=== PATIENT | female | born 1995 | race Caucasian/White ===

== ENCOUNTER 2018-07-23 17:19 | Emergency (ER) | payer BC ==
--- NOTE | 2018-07-23 19:16 | EDM.PDOC ---
ED HPI GENERAL MEDICAL PROBLEM - General Chief Complaint: Gastrointestinal Problem Stated Complaint: BLOODY BOWELS Time Seen by Provider: 07/23/18 18:42 Source of Information: Reports: Patient History Limitations: Reports: No Limitations - History of Present Illness INITIAL COMMENTS - FREE TEXT/NARRATIVE: This lady is her complaining of rectal bleeding since last pm. Bright red blood when she wipes. Some abd cramping this am when walking but now ok. Denies constipation. - Related Data Allergies Allergy/AdvReac Type Severity Reaction Status Date / Time No Known Allergies Allergy Verified 07/23/18 18:33 Home Meds: Home Meds NK [No Known Home Meds] 07/23/18 [History] Past Medical History - Past Surgical History GI Surgical History: Reports: Cholecystectomy Social & Family History - Tobacco Use Smoking Status *Q: Never Smoker - Caffeine Use Caffeine Use: Reports: Coffee, Soda - Recreational Drug Use Recreational Drug Use: No ED ROS GENERAL - Review of Systems Review Of Systems: ROS reveals no pertinent complaints other than HPI. ED EXAM, GI/ABD - Physical Exam Exam: See Below Exam Limited By: No Limitations General Appearance: Alert, Obese Rectal (Female) Exam: Rectal Fissure (Looks like a small hemorrhoid has split open. No more bleeding. Digital rectal neg except for rock hard smal pieces stool) Course - Vital Signs Last Recorded V/S: Last Vital Signs Temp 36.2 C 07/23/18 18:36 Pulse 79 07/23/18 18:36 Resp 16 07/23/18 18:36 BP 127/77 07/23/18 18:36 Pulse Ox 99 07/23/18 18:36 Departure - Departure Time of Disposition: 19:14 Disposition: Home, Self-Care 01 Condition: Fair Clinical Impression: External bleeding hemorrhoids - Discharge Information Referrals: Isabel Guerrero CNM [Primary Care Provider] - Additional Instructions: Try increasing your fiber intake. The easiest way is to add bran cereal to your diet. You could also use a fiber laxative. Avoiding hard stool helps to prevent straining at stool that can lead to bleeding.
== END 2018-07-23 19:32 | disposition home or self-care (01) ==
LOC: JP.ED 17:19
DX: K64.4 Residual hemorrhoidal skin tags (principal)
CPT/HCPCS: 99283

== ENCOUNTER 2019-05-21 21:34 | Emergency (ER) | payer BC ==
--- NOTE | 2019-05-21 22:21 | EDM.PDOC ---
<Coleen Chavez - Last Filed: 05/21/19 23:01> ED HPI GENERAL MEDICAL PROBLEM - General Chief Complaint: Abdominal Pain Stated Complaint: ABD PAIN ON BOTH SIDES Time Seen by Provider: 05/21/19 22:05 Source of Information: Reports: Patient History Limitations: Reports: No Limitations - History of Present Illness INITIAL COMMENTS - FREE TEXT/NARRATIVE: 23 yo female presents to ER with RLQ ABD pain. Pain has been present for 12 hours. she was able to work today. She has been mildly nauseated without emesis. LMP was 05/03/2019 she has a 29 day cycle. Last BM was prior to arrival and was normal. She did take Ibuprofen today at noon with little relief. denies dysuria. she is rating her pain 8/10 but laugh and talking with friend in room able to sit up in bed without difficulty she is also able to lay supine without indications of pain Bilateral Lower Abdomen Pain Score (Numeric/FACES): 9 - Related Data Allergies Allergy/AdvReac Type Severity Reaction Status Date / Time No Known Allergies Allergy Verified 05/21/19 21:53 Home Meds: Home Meds NK [No Known Home Meds] 07/23/18 [History] Past Medical History Psychiatric History: Reports: Depression - Infectious Disease History Infectious Disease History: Reports: Chicken Pox - Past Surgical History GI Surgical History: Reports: Cholecystectomy Social & Family History - Tobacco Use Smoking Status *Q: Current Every Day Smoker Years of Tobacco use: 2 Packs/Tins Daily: 0.5 Used Tobacco, but Quit: No Second Hand Smoke Exposure: Yes - Caffeine Use Caffeine Use: Reports: Energy Drinks, Soda - Alcohol Use Days Per Week of Alcohol Use: 0 - Recreational Drug Use Recreational Drug Use: No ED ROS GENERAL - Review of Systems Review Of Systems: See Below Constitutional: Denies: Fever, Chills Respiratory: Denies: Shortness of Breath Cardiovascular: Denies: Chest Pain GI/Abdominal: Reports: Abdominal Pain, Nausea. Denies: Constipation, Diarrhea, Decreased Appetite ED EXAM, GI/ABD - Physical Exam Exam: See Below Exam Limited By: No Limitations General Appearance: Alert, WD/WN, No Apparent Distress Respiratory/Chest: No Respiratory Distress, Lungs Clear, Normal Breath Sounds. No: Crackles, Rhonchi, Wheezing Cardiovascular: Regular Rate, Rhythm, No Murmur GI/Abdominal Exam: Normal Bowel Sounds, Soft, No Organomegaly, Tender (RLQ). No : Distended, Guarding, Rigid Neurological: Alert, Oriented Psychiatric: Normal Affect, Normal Mood Skin Exam: Warm, Dry, Intact Course - Vital Signs Last Recorded V/S: Last Vital Signs Temp 36.5 C 05/21/19 21:59 Pulse 73 05/21/19 21:59 Resp 16 05/21/19 21:59 BP 110/70 05/21/19 21:59 Pulse Ox 96 05/21/19 21:59 - Orders/Labs/Meds Orders: Active Orders 24 hr Category Date Time Status Ketorolac [Toradol] Med 05/21/19 23:22 Once 60 mg IM ONETIME ONE Labs: Laboratory Tests 05/21/19 05/21/19 05/21/19 Range/Units 22:28 22:45 22:45 WBC 7.9 (4.5-11.0) K/uL RBC 4.12 (3.30-5.50) M/uL Hgb 11.5 L (12.0-15.0) g/dL Hct 35.8 L (36.0-48.0) % MCV 87 (80-98) fL MCH 28 (27-31) pg MCHC 32 (32-36) % Plt Count 227 (150-400) K/uL Neut % (Auto) 62 (36-66) % Lymph % (Auto) 32 (24-44) % Ralls % (Auto) 5 (2-6) % Eos % (Auto) 0 L (2-4) % Baso % (Auto) 1 (0-1) % Urine Color Yellow Urine Appearance Slightly cloudy Urine pH 6.0 (4.5-8.0) Ur Specific [place] 1.020 (1.008-1.030) Urine Protein Negative (NEGATIVE) mg/dL Urine Glucose (UA) Normal (NEGATIVE) mg/dL Urine Ketones Negative (NEGATIVE) mg/dL Urine Occult Blood Negative (NEGATIVE) Urine Nitrite Positive H (NEGATIVE) Urine Bilirubin Negative (NEGATIVE) Urine Urobilinogen Normal (NORMAL) mg/dL Ur Leukocyte Esterase Negative (NEGATIVE) Urine RBC 0-5 (0-5) Urine WBC 0-5 (0-5) Ur Epithelial Cells Moderate Amorphous Sediment Not seen Urine Bacteria Moderate Urine Mucus Not seen Urine HCG, Qual Negative Departure - Departure Disposition: Home, Self-Care 01 Clinical Impression: RLQ abdominal pain - Discharge Information Referrals: Isabel Guerrero CNM [Primary Care Provider] - Forms: ED Department Discharge Additional Instructions: Take acetaminophen up to 1000 mg every 6 hrs as needed for pain relief. Add Aleve 2 every 8 hrs for added relief as needed. Recheck with your provider on Friday for recheck if your pain persists as you may benefit from a pelvic ultrasound to see if you have an ovarian cyst. - My Orders Last 24 Hours: My Active Orders 05/21/19 23:22 Ketorolac [Toradol] 60 mg IM ONETIME ONE - Assessment/Plan Last 24 Hours: My Active Orders 05/21/19 23:22 Ketorolac [Toradol] 60 mg IM ONETIME ONE <Olivier Wallace G - Last Filed: 05/21/19 23:25> Course - Vital Signs Text/Narrative:: Labs all normal, suspect ovarian cyst. Departure - Departure Time of Disposition: 23:35 Condition: Good - Discharge Information *PRESCRIPTION DRUG MONITORING PROGRAM REVIEWED*: No *COPY OF PRESCRIPTION DRUG MONITORING REPORT IN PATIENT IDALMIS: No
[2019-05-21] MEDS ORDERED: Ketorolac 60 MG/2 ML SDV IM ONE (23:22)
== END 2019-05-21 23:35 | disposition home or self-care (01) ==
LOC: JP.ED 21:34
DX: R10.31 Right lower quadrant pain (principal); F17.210 Nicotine dependence, cigarettes, uncomplicated
CPT/HCPCS: 36415; 81001; 81025; 85025; 96372; 99284; J1885

== ENCOUNTER 2019-07-04 02:33 | Emergency (ER) | payer BC ==
--- NOTE | 2019-07-04 03:07 | EDM.PDOC ---
ED HPI GENERAL MEDICAL PROBLEM - General Chief Complaint: Lower Extremity Injury/Pain Stated Complaint: PAIN IN RIGHT KNEE Time Seen by Provider: 07/04/19 02:57 Source of Information: Reports: Patient History Limitations: Reports: No Limitations - History of Present Illness INITIAL COMMENTS - FREE TEXT/NARRATIVE: 24-year-old female who was had persistent intense pain in her right knee with weightbearing over the past several weeks. 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 It's only painful when she bears weight. She was supposed to go to work at 5:00 this morning but does not think she can tolerate a shift of work because of the discomfort. She has tried ibuprofen without any relief. She sees physical therapy on 12 July and supposedly needs to have physical therapy for 6 weeks prior to surgical intervention. She has no pain when lying down. No swelling or redness. No specific trauma. Onset: Gradual Duration: Week(s): (2-3 weeks) Location: Reports: Lower Extremity, Right Associated Symptoms: Reports: No Other Symptoms Right Knee Pain Score (Numeric/FACES): 6 - Related Data Allergies Allergy/AdvReac Type Severity Reaction Status Date / Time No Known Allergies Allergy Verified 07/04/19 02:42 Home Meds: Home Meds NK [No Known Home Meds] 07/23/18 [History] Past Medical History HEENT History: Reports: Impaired Vision Neurological History: Reports: Migraines Psychiatric History: Reports: Depression, Panic Attack, Suicidal Ideation - Infectious Disease History Infectious Disease History: Reports: Chicken Pox - Past Surgical History GI Surgical History: Reports: Cholecystectomy Social & Family History - Tobacco Use Smoking Status *Q: Current Every Day Smoker Years of Tobacco use: 8 Packs/Tins Daily: 0.5 - Caffeine Use Caffeine Use: Reports: Soda - Recreational Drug Use Recreational Drug Use: No Review of Systems - Review of Systems Review Of Systems: See Below Constitutional: Denies: Fever Respiratory: Denies: Shortness of Breath Cardiovascular: Denies: Chest Pain GI/Abdominal: Denies: Abdominal Pain Neurological: Denies: Paresthesia Psychiatric: Reports: Depression ED EXAM, GENERAL - Physical Exam Exam: See Below Exam Limited By: No Limitations General Appearance: Alert, No Apparent Distress Respiratory/Chest: No Respiratory Distress Extremities: Other (Knees were examined and are symmetrical, no effusions. She has a small amount of discomfort with valgus stress to the right knee.Pain on varus stress or movement of the patella. 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 She'll be given 10 doses of ketorolac to take every 6 hours, offered crutches but she didn't think she could use them. I would like her to call orthopedics this week and see if she can't convince them to try an injection of steroid to speed up her recovery. Departure - Departure Time of Disposition: 03:23 Disposition: Home, Self-Care 01 Condition: Good Clinical Impression: Knee pain, right Qualifiers: Chronicity: acute Qualified Code(s): M25.561 - Pain in right knee - Discharge Information Instructions: Knee Pain, Adult Referrals: Isabel Guerrero CNM [Primary Care Provider] - Forms: ED Department Discharge Care Plan Goals: Take 1 pill of ketorolac every 6 hours until gone. Call orthopedics on Friday to see if you can't get a recheck next week, consider seeing Dr. Alejandro Chahal at the hospital if [facility] orthopedics is insistent on 6 weeks of physical therapy.
== END 2019-07-04 03:23 | disposition home or self-care (01) ==
LOC: JP.ED 02:33
DX: M25.561 Pain in right knee (principal); F17.210 Nicotine dependence, cigarettes, uncomplicated
CPT/HCPCS: 99283

== ENCOUNTER 2019-10-23 00:08 | Emergency (ER) | payer BC, OTHER ==
[2019-10-23] MEDS ORDERED: Ketorolac 60 MG/2 ML SDV IM ONE (00:54)
[2019-10-23] MEDS ORDERED: Cyclobenzaprine 10 MG Tab PO ONE (00:54)
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
== END 2019-10-23 01:41 | disposition home or self-care (01) ==
LOC: JP.ED 00:08
DX: G44.319 Acute post-traumatic headache, not intractable (principal); J44.9 Chronic obstructive pulmonary disease, unspecified; E66.9 Obesity, unspecified; Z68.41 Body mass index [BMI] 40.0-44.9, adult
CPT/HCPCS: 96372; 99283; A9270; J1885

== ENCOUNTER 2019-10-26 12:16 | Emergency (ER) | payer MEDICAID ==
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
== END 2019-10-26 13:27 | disposition home or self-care (01) ==
LOC: JP.ED 12:16
DX: R07.89 Other chest pain (principal); R07.81 Pleurodynia; J44.9 Chronic obstructive pulmonary disease, unspecified; E66.9 Obesity, unspecified; Z68.41 Body mass index [BMI] 40.0-44.9, adult; Z87.891 Personal history of nicotine dependence; Z79.51 Long term (current) use of inhaled steroids
CPT/HCPCS: 99282; 99284

== ENCOUNTER 2019-12-03 10:48 | Emergency (ER) | payer SELFPAY ==
--- NOTE | 2019-12-03 11:16 | EDM.PDOCBH ---
ED HPI GENERAL MEDICAL PROBLEM - General Chief Complaint: Behavioral/Psych Stated Complaint: SUICIDAL IDEATION Time Seen by Provider: 12/03/19 11:00 Source of Information: Reports: Patient, Old Records, RN History Limitations: Reports: No Limitations - History of Present Illness INITIAL COMMENTS - FREE TEXT/NARRATIVE: 24 yo female presents in referral from [facility] for depression with suicidal ideation. She says she tried to take "all her pills" last night but her friend took them away from her. She has been depressed for several weeks, states that she told her primary and was told she should go for help the next time it happens. Denies any recent illnesses. Onset: Gradual Duration: Week(s):, Getting Worse Location: Reports: Generalized Quality: Reports: Other (no pain) Severity: Moderate Improves with: Reports: None Worsens with: Reports: Other (time) Context: Reports: Other (See HPI) Associated Symptoms: Reports: No Other Symptoms Treatments POLITICAL SCIENTIST: Reports: Other (see below) (none) - Related Data Allergies Allergy/AdvReac Type Severity Reaction Status Date / Time No Known Allergies Allergy Verified 12/03/19 11:19 Home Meds: Home Meds Albuterol Sulfate [Albuterol Sulfate Hfa] 1 - 2 puff IN ASDIRECTED PRN 10/26/19 [History] Fluticasone/Salmeterol [Advair 100-50] 1 puff INH BID 10/26/19 [History] Omeprazole 20 mg PO DAILY 10/26/19 [History] SUMAtriptan succinate [Sumatriptan Succinate] 25 mg PO DAILY 10/26/19 [History] lamoTRIgine [Lamotrigine] 50 mg PO DAILY 12/03/19 [History] Past Medical History HEENT History: Reports: Impaired Vision Respiratory History: Reports: Asthma, COPD Neurological History: Reports: Migraines Psychiatric History: Reports: Anxiety, Depression, Panic Attack, Suicidal Ideation Endocrine/Metabolic History: Reports: Obesity/BMI 30+ - Infectious Disease History Infectious Disease History: Reports: Chicken Pox - Past Surgical History GI Surgical History: Reports: Cholecystectomy Social & Family History - Caffeine Use Caffeine Use: Reports: Soda ED ROS GENERAL - Review of Systems Review Of Systems: See Below Constitutional: Reports: No Symptoms HEENT: Reports: No Symptoms Respiratory: Reports: No Symptoms Cardiovascular: Reports: No Symptoms Endocrine: Reports: No Symptoms GI/Abdominal: Reports: No Symptoms : Reports: No Symptoms Musculoskeletal: Reports: No Symptoms Skin: Reports: No Symptoms Neurological: Reports: No Symptoms Psychiatric: Reports: Depression ED EXAM, BEHAVIORAL HEALTH - Physical Exam Exam: See Below Exam Limited By: No Limitations General Appearance: Alert, WD/WN, No Apparent Distress, Obese Eye Exam: Bilateral Eye: Normal Inspection Ears: Normal External Exam, Normal Canal, Hearing Grossly Normal, Normal TMs Nose: Normal Inspection, No Blood Throat/Mouth: Normal Inspection, Normal Lips, Normal Oropharynx, Normal Voice, No Airway Compromise Head: Atraumatic, Normocephalic Neck: Normal Inspection Respiratory/Chest: No Respiratory Distress, Lungs Clear, Normal Breath Sounds, No Accessory Muscle Use Cardiovascular: Regular Rate, Rhythm, No Edema GI/Abdominal: Normal Bowel Sounds, Soft, Non-Tender, No Distention Back Exam: Normal Inspection. No: CVA Tenderness (R), CVA Tenderness (L) Extremities: Normal Inspection, Normal Range of Motion, Non-Tender, No Pedal Edema Neurological: Alert, Normal Mood/Affect, CN II-XII Intact, Normal Cognition, No Motor/Sensory Deficits, Oriented x 3 Psychiatric: Alert, Normal Affect, Normal Cognition, Normal Mood, Oriented Skin Exam: Warm, Dry, Intact, Normal color, No rash COURSE, BEHAVIORAL HEALTH COMP - Course Vital Signs: Last Vital Signs Temp 35.9 C 12/03/19 11:18 Pulse 82 12/03/19 13:25 Resp 14 12/03/19 13:25 BP 125/67 12/03/19 13:25 Pulse Ox 97 12/03/19 13:25 Orders, Labs, Meds: Laboratory Tests 12/03/19 12/03/19 12/03/19 Range/Units 11:02 11:02 11:02 WBC (4.5-11.0) K/uL RBC (3.30-5.50) M/uL Hgb (12.0-15.0) g/dL Hct (36.0-48.0) % MCV (80-98) fL MCH (27-31) pg MCHC (32-36) % Plt Count (150-400) K/uL Sodium (140-148) mmol/L Potassium (3.6-5.2) mmol/L Chloride (100-108) mmol/L Carbon Dioxide (21-32) mmol/L Anion Gap (5.0-14.0) mmol/L BUN (7-18) mg/dL Creatinine (0.6-1.0) mg/dL Est Cr Clr Drug Dosing mL/min Estimated GFR (MDRD) (>60) Glucose (74-106) mg/dL Calcium (8.5-10.1) mg/dL TSH, Ultra Sensitive (0.358-3.740) uIU/mL Urine Color Yellow (YELLOW) Urine Appearance Slightly cloudy A (CLEAR) Urine pH 6.0 (5.0-8.0) Ur Specific [place] 1.015 (1.008-1.030) Urine Protein Negative (NEGATIVE) mg/dL Urine Glucose (UA) Negative (NEGATIVE) mg/dL Urine Ketones Negative (NEGATIVE) mg/dL Urine Occult Blood Trace-intact H (NEGATIVE) Urine Nitrite Negative (NEGATIVE) Urine Bilirubin Negative (NEGATIVE) Urine Urobilinogen 0.2 (0.2-1.0) EU/dL Ur Leukocyte Esterase Negative (NEGATIVE) Urine RBC 0-5 (0-5) Urine WBC 0-5 (0-5) Ur Epithelial Cells Many Amorphous Sediment Not seen Urine Bacteria Many Urine Mucus Not seen Urine HCG, Qual Negative Salicylates (2.0-20.0) mg/dL Urine Opiates Screen Negative (NEGATIVE) Ur Oxycodone Screen Negative (NEGATIVE) Urine Methadone Screen Negative (NEGATIVE) Ur Propoxyphene Screen Negative (NEGATIVE) Acetaminophen (10.0-30.0) ug/mL Ur Barbiturates Screen Negative (NEGATIVE) Ur Tricyclics Screen Negative (NEGATIVE) Ur Phencyclidine Scrn Negative (NEGATIVE) Ur Amphetamine Screen Negative (NEGATIVE) U Methamphetamines Scrn Negative (NEGATIVE) Urine MDMA Screen Negative (NEGATIVE) U Benzodiazepines Scrn Negative (NEGATIVE) U Cocaine Metab Screen Negative (NEGATIVE) U Marijuana (THC) Screen Negative (NEGATIVE) Ethyl Alcohol mg/dL 12/03/19 12/03/19 12/03/19 Range/Units 11:16 11:16 11:16 WBC 5.5 (4.5-11.0) K/uL RBC 4.72 (3.30-5.50) M/uL Hgb 13.3 (12.0-15.0) g/dL Hct 41.2 (36.0-48.0) % MCV 87 (80-98) fL MCH 28 (27-31) pg MCHC 32 (32-36) % Plt Count 267 (150-400) K/uL Sodium 138 L (140-148) mmol/L Potassium 4.1 (3.6-5.2) mmol/L Chloride 100 (100-108) mmol/L Carbon Dioxide 30 (21-32) mmol/L Anion Gap 12.1 (5.0-14.0) mmol/L BUN 9 (7-18) mg/dL Creatinine 1.0 (0.6-1.0) mg/dL Est Cr Clr Drug Dosing 76.71 mL/min Estimated GFR (MDRD) > 60 (>60) Glucose 115 H (74-106) mg/dL Calcium 8.9 (8.5-10.1) mg/dL TSH, Ultra Sensitive 3.492 (0.358-3.740) uIU/mL Urine Color (YELLOW) Urine Appearance (CLEAR) Urine pH (5.0-8.0) Ur Specific [place] (1.008-1.030) Urine Protein (NEGATIVE) mg/dL Urine Glucose (UA) (NEGATIVE) mg/dL Urine Ketones (NEGATIVE) mg/dL Urine Occult Blood (NEGATIVE) Urine Nitrite (NEGATIVE) Urine Bilirubin (NEGATIVE) Urine Urobilinogen (0.2-1.0) EU/dL Ur Leukocyte Esterase (NEGATIVE) Urine RBC (0-5) Urine WBC (0-5) Ur Epithelial Cells Amorphous Sediment Urine Bacteria Urine Mucus Urine HCG, Qual Salicylates (2.0-20.0) mg/dL Urine Opiates Screen (NEGATIVE) Ur Oxycodone Screen (NEGATIVE) Urine Methadone Screen (NEGATIVE) Ur Propoxyphene Screen (NEGATIVE) Acetaminophen 0.0 L (10.0-30.0) ug/mL Ur Barbiturates Screen (NEGATIVE) Ur Tricyclics Screen (NEGATIVE) Ur Phencyclidine Scrn (NEGATIVE) Ur Amphetamine Screen (NEGATIVE) U Methamphetamines Scrn (NEGATIVE) Urine MDMA Screen (NEGATIVE) U Benzodiazepines Scrn (NEGATIVE) U Cocaine Metab Screen (NEGATIVE) U Marijuana (THC) Screen (NEGATIVE) Ethyl Alcohol mg/dL 12/03/19 12/03/19 Range/Units 11:16 11:16 WBC (4.5-11.0) K/uL RBC (3.30-5.50) M/uL Hgb (12.0-15.0) g/dL Hct (36.0-48.0) % MCV (80-98) fL MCH (27-31) pg MCHC (32-36) % Plt Count (150-400) K/uL Sodium (140-148) mmol/L Potassium (3.6-5.2) mmol/L Chloride (100-108) mmol/L Carbon Dioxide (21-32) mmol/L Anion Gap (5.0-14.0) mmol/L BUN (7-18) mg/dL Creatinine (0.6-1.0) mg/dL Est Cr Clr Drug Dosing mL/min Estimated GFR (MDRD) (>60) Glucose (74-106) mg/dL Calcium (8.5-10.1) mg/dL TSH, Ultra Sensitive (0.358-3.740) uIU/mL Urine Color (YELLOW) Urine Appearance (CLEAR) Urine pH (5.0-8.0) Ur Specific [place] (1.008-1.030) Urine Protein (NEGATIVE) mg/dL Urine Glucose (UA) (NEGATIVE) mg/dL Urine Ketones (NEGATIVE) mg/dL Urine Occult Blood (NEGATIVE) Urine Nitrite (NEGATIVE) Urine Bilirubin (NEGATIVE) Urine Urobilinogen (0.2-1.0) EU/dL Ur Leukocyte Esterase (NEGATIVE) Urine RBC (0-5) Urine WBC (0-5) Ur Epithelial Cells Amorphous Sediment Urine Bacteria Urine Mucus Urine HCG, Qual Salicylates 0.7 L (2.0-20.0) mg/dL Urine Opiates Screen (NEGATIVE) Ur Oxycodone Screen (NEGATIVE) Urine Methadone Screen (NEGATIVE) Ur Propoxyphene Screen (NEGATIVE) Acetaminophen (10.0-30.0) ug/mL Ur Barbiturates Screen (NEGATIVE) Ur Tricyclics Screen (NEGATIVE) Ur Phencyclidine Scrn (NEGATIVE) Ur Amphetamine Screen (NEGATIVE) U Methamphetamines Scrn (NEGATIVE) Urine MDMA Screen (NEGATIVE) U Benzodiazepines Scrn (NEGATIVE) U Cocaine Metab Screen (NEGATIVE) U Marijuana (THC) Screen (NEGATIVE) Ethyl Alcohol < 3 mg/dL Medical Clearance: 12/03/19 13:41 Cleared medically, accepted by [facility]. Will place on a 72hr hold. Departure - Departure Time of Disposition: 14:00 Disposition: DC/Tfer to Psych Hosp/Unit 65 Condition: Fair Clinical Impression: Suicidal ideation Depression Qualifiers: Depression Type: major depressive disorder Major depression recurrence: recurrent Active/Remission status: currently active Major depression episode severity: severe Psychotic features: without psychotic features Qualified Code(s ): F33.2 - Major depressive disorder, recurrent severe without psychotic features - Discharge Information *PRESCRIPTION DRUG MONITORING PROGRAM REVIEWED*: No *COPY OF PRESCRIPTION DRUG MONITORING REPORT IN PATIENT IDALMIS: No Referrals: PCP,None [Primary Care Provider] - Forms: ED Department Discharge Sepsis Event Note - Focused Exam Vital Signs: Vital Signs Temp Pulse Resp BP Pulse Ox 12/03/19 13:25 82 14 125/67 97 12/03/19 11:18 35.9 C 62 16 148/84 H 98 12/03/19 11:00 35.9 C 62 16 148/84 H 98 Date Exam was Performed: 12/03/19 Time Exam was Performed: 13:40
== END 2019-12-03 17:47 ==
LOC: JP.ED 10:48
DX: F32.9 Major depressive disorder, single episode, unspecified (principal)
CPT/HCPCS: 36415; 80048; 80305-QW; 81001; 81025; 84443; 85027; 99285; G0480

== ENCOUNTER 2020-02-02 18:47 | Emergency (ER) | payer SELFPAY ==
--- NOTE | 2020-02-02 19:22 | EDM.PDOC ---
ED HPI GENERAL MEDICAL PROBLEM - General Chief Complaint: Lower Extremity Injury/Pain Stated Complaint: RIGHT KNEE PAIN Time Seen by Provider: 02/02/20 19:05 Source of Information: Reports: Patient, Old Records, RN History Limitations: Reports: No Limitations - History of Present Illness INITIAL COMMENTS - FREE TEXT/NARRATIVE: 24 yo female here with an acute exacerbation of chronic knee pain. 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 Took ibuprofen yesterday, but nothing today. Doesn't think the knee is swollen. Had had an MRI per Dr. Mckeon, orthopedics, before he left. Just got insurance again , so came to the ER. Has not been to the clinic for this. Onset: Sudden Onset Date: 02/01/20 Duration: Day(s): (1), Constant Location: Reports: Lower Extremity, Right Quality: Reports: Ache Severity: Mild Improves with: Reports: Rest Worsens with: Reports: Movement Context: Reports: Trauma Associated Symptoms: Reports: No Other Symptoms Treatments DISPATCHER ELECTRIC POWER: Reports: Other (see below) (none) Right Knee Pain Score (Numeric/FACES): 8 - Related Data Allergies Allergy/AdvReac Type Severity Reaction Status Date / Time No Known Allergies Allergy Verified 02/02/20 18:59 Home Meds: Home Meds Albuterol Sulfate [Albuterol Sulfate Hfa] 1 - 2 puff IN ASDIRECTED PRN 10/26/19 [History] Fluticasone/Salmeterol [Advair 100-50] 1 puff INH BID 10/26/19 [History] Omeprazole 20 mg PO DAILY 10/26/19 [History] SUMAtriptan succinate [Sumatriptan Succinate] 25 mg PO DAILY 10/26/19 [History] lamoTRIgine [Lamotrigine] 50 mg PO DAILY 12/03/19 [History] Past Medical History HEENT History: Reports: Impaired Vision Respiratory History: Reports: Asthma, COPD Musculoskeletal History: Reports: Other (See Below) Other 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 Neurological History: Reports: Migraines Psychiatric History: Reports: Anxiety, Depression, Panic Attack, Suicidal Ideation Endocrine/Metabolic History: Reports: Obesity/BMI 30+ - Infectious Disease History Infectious Disease History: Reports: Chicken Pox - Past Surgical History GI Surgical History: Reports: Cholecystectomy Social & Family History - Tobacco Use Smoking Status *Q: Former Smoker Years of Tobacco use: 8 Packs/Tins Daily: 0.5 Used Tobacco, but Quit: Yes Month/Year Tobacco Last Used: Jan 2020 Second Hand Smoke Exposure: No - Caffeine Use Caffeine Use: Reports: Soda - Recreational Drug Use Recreational Drug Use: No Review of Systems - Review of Systems Review Of Systems: See Below Constitutional: Reports: No Symptoms Musculoskeletal: Reports: Joint Pain (R knee > L knee) Skin: Reports: No Symptoms Neurological: Reports: No Symptoms ED EXAM, GENERAL - Physical Exam Exam: See Below Exam Limited By: No Limitations General Appearance: Alert, WD/WN, No Apparent Distress Extremities: Normal Inspection, Normal Range of Motion, No Pedal Edema, Other ( tender anterormedially. No ligament laxity.). No: Non-Tender, Pedal Edema Neurological: Alert, Oriented, CN II-XII Intact, Normal Cognition, No Motor/ Sensory Deficits Course - Vital Signs Last Recorded V/S: Last Vital Signs Temp 36.7 C 02/02/20 19:05 Pulse 77 02/02/20 19:05 Resp 16 02/02/20 19:05 BP 121/70 02/02/20 19:05 Pulse Ox 100 02/02/20 19:05 Departure - Departure Time of Disposition: 19:20 Disposition: Home, Self-Care 01 Condition: Good Clinical Impression: Chronic pain of both knees Contusion of right knee Qualifiers: Encounter type: initial encounter Qualified Code(s): S80.01XA - Contusion of right knee, initial encounter - Discharge Information *PRESCRIPTION DRUG MONITORING PROGRAM REVIEWED*: Not Applicable *COPY OF PRESCRIPTION DRUG MONITORING REPORT IN PATIENT IDALMIS: Not Applicable Instructions: Knee Pain, Adult, [id number] Referrals: Isabel Guerrero CNM [Primary Care Provider] - Additional Instructions: Take ibuprofen and/or acetaminophen as needed for pain relief. F\U with Dr. Chahal to see if he has anything to offer you for pain relief reduction. Sepsis Event Note - Evaluation Sepsis Screening Result: No Definite Risk - Focused Exam Vital Signs: Vital Signs Temp Pulse Resp BP Pulse Ox 02/02/20 19:05 36.7 C 77 16 121/70 100 Date Exam was Performed: 02/02/20 Time Exam was Performed: 19:16
== END 2020-02-02 19:30 | disposition home or self-care (01) ==
LOC: JP.ED 18:47
DX: S80.01XA Contusion of right knee, initial encounter (principal); M25.561 Pain in right knee; M25.562 Pain in left knee; G89.29 Other chronic pain; Z90.49 Acquired absence of other specified parts of digestive tract; Z87.891 Personal history of nicotine dependence; W19.XXXA Unspecified fall, initial encounter
CPT/HCPCS: 99282; 99283

== ENCOUNTER 2020-02-06 22:42 | Emergency (ER) | payer MEDICAID, OTHER ==
[2020-02-06] MEDS ORDERED: Sodium Chloride 0.9% 10 ML Syringe FLUSH PRN (23:37)
[2020-02-06] MEDS ORDERED: Ondansetron 4 MG/2 ML SDV IVPUSH ONE (23:38)
[2020-02-06] MEDS ORDERED: fentaNYL 100 MCG/2 ML SDV IVPUSH ONE (23:38)
--- NOTE | 2020-02-06 23:40 | EDM.PDOC ---
ED HPI GENERAL MEDICAL PROBLEM - General Chief Complaint: Abdominal Pain Stated Complaint: STOMACH PAINS Time Seen by Provider: 02/06/20 23:34 Source of Information: Reports: Patient, RN Notes Reviewed History Limitations: Reports: No Limitations - History of Present Illness INITIAL COMMENTS - FREE TEXT/NARRATIVE: 24-year-old female presents emergency department with a complaint of abdominal pain, she describes the pain mainly in the epigastric region is been going on for a week and a half but has progressively gotten worse. She does get nauseated with the pain the pain is exacerbated with food. She had her gallbladder out about 5 years ago. Treatments OPTICAL WORKER: Reports: Other (see below) Other Treatments OPTICAL WORKER: none Upper Abdomen Pain Score (Numeric/FACES): 6 - Related Data Allergies Allergy/AdvReac Type Severity Reaction Status Date / Time No Known Allergies Allergy Verified 02/06/20 23:20 Home Meds: Home Meds Albuterol Sulfate [Albuterol Sulfate Hfa] 1 - 2 puff IN ASDIRECTED PRN 10/26/19 [History] Fluticasone/Salmeterol [Advair 100-50] 1 puff INH BID 10/26/19 [History] Omeprazole 20 mg PO DAILY 10/26/19 [History] SUMAtriptan succinate [Sumatriptan Succinate] 25 mg PO DAILY 10/26/19 [History] lamoTRIgine [Lamotrigine] 50 mg PO DAILY 12/03/19 [History] Past Medical History HEENT History: Reports: Impaired Vision Respiratory History: Reports: Asthma, COPD Musculoskeletal History: Reports: Other (See Below) Other 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 Neurological History: Reports: Migraines Psychiatric History: Reports: Anxiety, Depression, Panic Attack, Suicidal Ideation Endocrine/Metabolic History: Reports: Obesity/BMI 30+ - Infectious Disease History Infectious Disease History: Reports: Chicken Pox - Past Surgical History GI Surgical History: Reports: Cholecystectomy Social & Family History - Tobacco Use Smoking Status *Q: Never Smoker Second Hand Smoke Exposure: No - Caffeine Use Caffeine Use: Reports: Coffee - Recreational Drug Use Recreational Drug Use: No ED ROS GENERAL - Review of Systems Review Of Systems: See Below Constitutional: Reports: No Symptoms HEENT: Reports: No Symptoms Respiratory: Reports: No Symptoms Cardiovascular: Reports: No Symptoms GI/Abdominal: Reports: Abdominal Pain, Nausea. Denies: Diarrhea, Vomiting : Reports: No Symptoms Musculoskeletal: Reports: No Symptoms ED EXAM, GI/ABD - Physical Exam Exam: See Below Exam Limited By: No Limitations General Appearance: Alert, WD/WN, No Apparent Distress Neck: Normal Inspection, Supple, Non-Tender, Full Range of Motion Respiratory/Chest: No Respiratory Distress, Lungs Clear, Normal Breath Sounds, No Accessory Muscle Use, Chest Non-Tender Cardiovascular: Regular Rate, Rhythm, No Murmur GI/Abdominal Exam: Normal Bowel Sounds, Soft, Tender (Epigastric region) Course - Vital Signs Last Recorded V/S: Last Vital Signs Temp 97.4 F 02/06/20 23:33 Pulse 74 02/06/20 23:33 Resp 14 02/06/20 23:33 BP 134/83 02/06/20 23:33 Pulse Ox 100 02/06/20 23:33 - Orders/Labs/Meds Orders: Active Orders 24 hr Category Date Time Status Peripheral IV Care [RC] . DIRECTED Care 02/06/20 23:37 Active CULTURE URINE [RM] Urgent Lab 02/07/20 01:15 Ordered Lactated Ringers [Ringers, Lactated] 1,000 ml Med 02/06/20 23:45 Active IV ASDIRECTED Sodium Chloride 0.9% [Saline Flush] Med 02/06/20 23:37 Active 10 ml FLUSH ASDIRECTED PRN Peripheral IV Insertion Adult [OM.PC] Urgent Oth 02/06/20 23:37 Ordered Medication Orders Lactated Ringer's (Ringers, Lactated) 1,000 mls @ 999 mls/hr IV ASDIRECTED PATRICIA Last Admin: 02/06/20 23:57 Dose: 999 mls/hr Sodium Chloride (Saline Flush) 10 ml FLUSH ASDIRECTED PRN PRN Reason: Keep Vein Open Last Admin: 02/06/20 23:57 Dose: 10 ml Labs: Laboratory Tests 02/06/20 02/06/20 02/06/20 Range/Units 23:37 23:41 23:49 WBC 6.3 (4.5-11.0) K/uL RBC 4.18 (3.30-5.50) M/uL Hgb 11.6 L (12.0-15.0) g/dL Hct 35.9 L (36.0-48.0) % MCV 86 (80-98) fL MCH 28 (27-31) pg MCHC 32 (32-36) % Plt Count 273 (150-400) K/uL Neut % (Auto) 50 (36-66) % Lymph % (Auto) 45 H (24-44) % [place] % (Auto) 4 (2-6) % Eos % (Auto) 1 L (2-4) % Baso % (Auto) 1 (0-1) % Sodium (140-148) mmol/L Potassium (3.6-5.2) mmol/L Chloride (100-108) mmol/L Carbon Dioxide (21-32) mmol/L Anion Gap (5.0-14.0) mmol/L BUN (7-18) mg/dL Creatinine (0.6-1.0) mg/dL Est Cr Clr Drug Dosing mL/min Estimated GFR (MDRD) (>60) Glucose (74-106) mg/dL Lactic Acid (0.4-2.0) mmol/L Calcium (8.5-10.1) mg/dL Total Bilirubin (0.2-1.0) mg/dL AST (15-37) U/L ALT (12-78) U/L Alkaline Phosphatase (46-116) U/L Total Protein (6.4-8.2) g/dL Albumin (3.4-5.0) g/dL Globulin (2.3-3.5) g/dL Albumin/Globulin Ratio (1.2-2.2) Lipase (73-393) U/L Urine Color Yellow (YELLOW) Urine Appearance Slightly cloudy A (CLEAR) Urine pH 5.5 (5.0-8.0) Ur Specific [place] >= 1.030 (1.008-1.030) Urine Protein Negative (NEGATIVE) mg/dL Urine Glucose (UA) Negative (NEGATIVE) mg/dL Urine Ketones Negative (NEGATIVE) mg/dL Urine Occult Blood Moderate H (NEGATIVE) Urine Nitrite Positive H (NEGATIVE) Urine Bilirubin Negative (NEGATIVE) Urine Urobilinogen 0.2 (0.2-1.0) EU/dL Ur Leukocyte Esterase Negative (NEGATIVE) Urine RBC 0-5 (0-5) Urine WBC 0-5 (0-5) Ur Epithelial Cells Few Amorphous Sediment Not seen Urine Bacteria Many Urine Mucus Not seen Urine HCG, Qual Negative 02/06/20 02/06/20 Range/Units 23:49 23:49 WBC (4.5-11.0) K/uL RBC (3.30-5.50) M/uL Hgb (12.0-15.0) g/dL Hct (36.0-48.0) % MCV (80-98) fL MCH (27-31) pg MCHC (32-36) % Plt Count (150-400) K/uL Neut % (Auto) (36-66) % Lymph % (Auto) (24-44) % [place] % (Auto) (2-6) % Eos % (Auto) (2-4) % Baso % (Auto) (0-1) % Sodium 142 (140-148) mmol/L Potassium 3.5 L (3.6-5.2) mmol/L Chloride 106 (100-108) mmol/L Carbon Dioxide 26 (21-32) mmol/L Anion Gap 13.5 (5.0-14.0) mmol/L BUN 14 D (7-18) mg/dL Creatinine 0.9 (0.6-1.0) mg/dL Est Cr Clr Drug Dosing 85.24 mL/min Estimated GFR (MDRD) > 60 (>60) Glucose 109 H (74-106) mg/dL Lactic Acid 1.1 (0.4-2.0) mmol/L Calcium 8.7 (8.5-10.1) mg/dL Total Bilirubin 0.2 (0.2-1.0) mg/dL AST 11 L (15-37) U/L ALT 14 (12-78) U/L Alkaline Phosphatase 52 (46-116) U/L Total Protein 6.8 (6.4-8.2) g/dL Albumin 3.4 (3.4-5.0) g/dL Globulin 3.4 (2.3-3.5) g/dL Albumin/Globulin Ratio 1.0 L (1.2-2.2) Lipase 128 (73-393) U/L Urine Color (YELLOW) Urine Appearance (CLEAR) Urine pH (5.0-8.0) Ur Specific [place] (1.008-1.030) Urine Protein (NEGATIVE) mg/dL Urine Glucose (UA) (NEGATIVE) mg/dL Urine Ketones (NEGATIVE) mg/dL Urine Occult Blood (NEGATIVE) Urine Nitrite (NEGATIVE) Urine Bilirubin (NEGATIVE) Urine Urobilinogen (0.2-1.0) EU/dL Ur Leukocyte Esterase (NEGATIVE) Urine RBC (0-5) Urine WBC (0-5) Ur Epithelial Cells Amorphous Sediment Urine Bacteria Urine Mucus Urine HCG, Qual Meds: Medications Generic Name Dose Route Start Last Admin Trade Name Freq PRN Reason Stop Dose Admin Lactated Ringer's 1,000 mls @ 999 mls/hr 02/06/20 23:45 02/06/20 23:57 Ringers, Lactated IV 999 mls/hr ASDIRECTED PATRICIA Administration Sodium Chloride 10 ml 02/06/20 23:37 02/06/20 23:57 Saline Flush FLUSH 10 ml ASDIRECTED PRN Administration Keep Vein Open Discontinued Medications Generic Name Dose Route Start Last Admin Trade Name Freq PRN Reason Stop Dose Admin Fentanyl 50 mcg 02/06/20 23:38 02/07/20 00:01 Sublimaze IVPUSH 02/06/20 23:39 50 mcg ONETIME ONE Administration Sodium Chloride 85 mls @ 3.5 mls/sec 02/07/20 00:16 02/07/20 00:33 Normal Saline IV 02/07/20 00:17 3.5 mls/sec ASDIRECTED STA Administration Iopamidol 150 ml 02/07/20 00:15 02/07/20 00:33 Isovue-300 (61%) IV 02/07/20 00:16 150 ml . DIRECTED STA Administration Ondansetron HCl 4 mg 02/06/20 23:38 02/06/20 23:58 Zofran IVPUSH 02/06/20 23:39 4 mg ONETIME ONE Administration Departure - Departure Time of Disposition: 01:16 Disposition: Home, Self-Care 01 Condition: Fair Clinical Impression: Functional constipation - Discharge Information Instructions: Constipation, Adult Referrals: Isabel Guerrero CNM [Primary Care Provider] - Forms: ED Department Discharge Additional Instructions: Try the MiraLAX follow the colonoscopy preparation, please followup with your primary care provider in 3-5 days if not better, please call return to the emergency department with worsening of symptoms. Sepsis Event Note - Evaluation Sepsis Screening Result: No Definite Risk - Focused Exam Vital Signs: Vital Signs Temp Pulse Resp BP Pulse Ox 02/06/20 23:33 97.4 F 74 14 134/83 100 Date Exam was Performed: 02/07/20 Time Exam was Performed: 01:16 - My Orders Last 24 Hours: My Active Orders 02/06/20 23:37 Peripheral IV Care [RC] . DIRECTED Sodium Chloride 0.9% [Saline Flush] 10 ml FLUSH ASDIRECTED PRN Peripheral IV Insertion Adult [OM.PC] Urgent 02/06/20 23:45 Lactated Ringers [Ringers, Lactated] 1,000 ml IV ASDIRECTED 02/07/20 01:15 CULTURE URINE [RM] Urgent - Assessment/Plan Last 24 Hours: My Active Orders 02/06/20 23:37 Peripheral IV Care [RC] . DIRECTED Sodium Chloride 0.9% [Saline Flush] 10 ml FLUSH ASDIRECTED PRN Peripheral IV Insertion Adult [OM.PC] Urgent 02/06/20 23:45 Lactated Ringers [Ringers, Lactated] 1,000 ml IV ASDIRECTED 02/07/20 01:15 CULTURE URINE [RM] Urgent Plan: Assessment Acuity = acute Site and laterality = functional constipation Etiology = slow transit time Manifestations = intermittent abdominal pain Location of injury = Home Lab values = CBC, CMP unremarkable urinalysis was positive for nitrates however no WBCs present cultures pending CT scan describes no acute process Plan Treat with MiraLAX colonoscopy prep was provided follow-up primary care 3 to 5 days if not better This note was dictated using [employer]EM[employer] voice recognition software please call with any questions on syntax or grammar.
[2020-02-06] MEDS ORDERED: Lactated Ringers 1,000 ML IV SCH (23:45)
[2020-02-07] MEDS ORDERED: Iopamidol 612 MG/ML 150 ML Bottle IV STA (00:15)
--- NOTE | 2020-02-07 01:12 | CRLCT ---
INDICATION: Epigastric pain TECHNIQUE: CT abdomen and pelvis acquired with 150 cc Isovue 300 IV contrast. COMPARISON: None FINDINGS: Lower chest: Unremarkable. Liver: Unremarkable. Spleen: Unremarkable. Pancreas: Unremarkable. Gallbladder and bile ducts: S/p cholecystectomy. Adrenal glands: Unremarkable. Kidneys: Unremarkable. GI tract: Unremarkable. Appendix is normal. Vascular structures: Unremarkable. Lymph nodes: Unremarkable. Miscellaneous: Unremarkable. No free air or significant free fluid. Pelvic Organs: Unremarkable. Bones: Unremarkable for age. IMPRESSION: No acute intra-abdominal process. Status post cholecystectomy. Please note that all CT scans at this facility use dose modulation, iterative reconstruction, and/or weight-based dosing when appropriate to reduce radiation dose to as low as reasonably achievable. Dictated by Thais Wagner MD @ Feb 07 2020 1:07AM Signed by Dr. Thais Wagner @ Feb 07 2020 1:10AM
== END 2020-02-07 01:30 | disposition home or self-care (01) ==
LOC: JP.ED 22:42
DX: K59.04 Chronic idiopathic constipation (principal); E66.9 Obesity, unspecified; Z90.49 Acquired absence of other specified parts of digestive tract; Z79.899 Other long term (current) drug therapy
CPT/HCPCS: 36415; 74177; 80053; 81001; 81025; 83605; 83690; 85025; 87086; 87088; 87186; 96361; 96374; 96375; 99284; J2405; J3010; J7050; J7120; Q9967

== ENCOUNTER 2020-04-19 08:13 | Day surgery (SDC) | payer MEDICAID ==
[~2020-04-19 08:13] MED LIST: Bupivacaine 0.5% 30 ML SDV ONE
[2020-04-19] MEDS ORDERED: Lactated Ringers 1,000 ML IV SCH (08:45)
[2020-04-19] MEDS ORDERED: Nozin Nasal Sanitizer NASBOTH ONE (09:00)
[2020-04-19] MEDS ORDERED: Neostigmine Methylsulfate 1 MG/ML 5 ML Syringe ONE (09:02)
[2020-04-19] MEDS ORDERED: Rocuronium 50 MG/5 ML Vial ONE (09:02)
[2020-04-19] MEDS ORDERED: Ondansetron 4 MG/2 ML SDV ONE (09:02)
[2020-04-19] MEDS ORDERED: Dexamethasone 4 MG/ML SDV ONE (09:02)
[2020-04-19] MEDS ORDERED: Propofol 200 MG/20 ML SDV ONE (09:02)
[2020-04-19] MEDS ORDERED: Succinylcholine 200 MG/10 ML MDV ONE (09:02)
[2020-04-19] MEDS ORDERED: Glycopyrrolate 0.2 MG/ML 5 ML MDV ONE (09:02)
[2020-04-19] MEDS ORDERED: fentaNYL 250 MCG/5 ML SDV ONE (09:04)
[2020-04-19] MEDS ORDERED: ceFAZolin 2 GM in Premix Bag 1 BAG IV ONE (09:30)
[2020-04-19] MEDS ORDERED: fentaNYL 100 MCG/2 ML SDV ONE (09:59)
[2020-04-19] MEDS ORDERED: Ketorolac 60 MG/2 ML SDV ONE (10:00)
[2020-04-19] MEDS ORDERED: Sugammadex Sodium 200 MG/2 ML VIAL ONE (10:21)
[2020-04-19] MEDS ORDERED: Acetaminophen/HYDROcodone 325-5 MG Tab PO PRN (11:21)
--- NOTE | 2020-05-04 18:45 | OR ---
DATE OF PROCEDURE: 04/19/2020 SURGEON: Alejandro Chahal MD PREOPERATIVE DIAGNOSIS: Chondromalacia of right knee. POSTOPERATIVE DIAGNOSES: 1. Chondromalacia of medial femoral condyle, grade 2. 2. Medial plica syndrome. PROCEDURES: Arthroscopy of right knee with chondroplasty of medial femoral condyle and limited synovectomy with excision of medial plica. ANESTHESIA: General. INDICATIONS: Rishabh is a 24-year-old female with a history of persistent right knee pain, catching and giving way. She has failed conservative treatment. She now presents for arthroscopy of the right knee with chondroplasty. Risks, benefits, and potential complications of the procedure were discussed. DESCRIPTION OF PROCEDURE: After adequate anesthesia was obtained, the patient was placed supine with a tourniquet about the right upper thigh. Right leg was prepped and draped in a sterile fashion. Leg was exsanguinated and tourniquet inflated to 300 mmHg pressure. Standard inferior, medial, and lateral portals were established. Patellofemoral joint was inspected. Initial view of the trochlea was obscured by a large medial plica, which extended greater than 50% into the patellofemoral joint. The articular surface of the patella was intact, and the patella was centered well within the trochlea. Moving the scope beneath the plica and sweeping into the medial compartment, chondromalacia of the medial femoral condyle was noted, grade 2. This was more up along the anterior portion consistent with impingement against the medial plica, and the major weightbearing portion of the condyle was intact. Medial meniscus was intact. Intercondylar notch revealed intact ACL and PCL. Lateral compartment with intact meniscus and no significant articular cartilage damage. Attention was returned medially and a shaver was used to resect the plica, allowing further visualization of the trochlea. This revealed no significant articular cartilage defects and again the patella centered well and tracked without evidence of malalignment. Loose articular fragments over the medial femoral condyle were debrided with the shaver. No full-thickness defects were present, and the area of the chondromalacia was relatively superficial. No loose bodies or other abnormalities were identified. Knee was drained and scope was withdrawn. Port sites were closed in a standard fashion. The knee was dressed with sterile gauze and STU bandage. The patient tolerated the procedure well. There were no complications. She was taken from the operating room in a stable condition. Alejandro Chahal MD /[id number] MTDD
== END 2020-04-19 13:00 | disposition home or self-care (01) ==
LOC: JP.SDS 08:13
PROVIDERS: ATTEND Specialist
DX: M67.51 Plica syndrome, right knee (principal); M94.261 Chondromalacia, right knee; J44.9 Chronic obstructive pulmonary disease, unspecified; F41.9 Anxiety disorder, unspecified; F32.9 Major depressive disorder, single episode, unspecified
CPT/HCPCS: 29875; 36415; 80053; 81025; 85027; A9270; J0330; J1100; J1885; J2405; J2704; J2710; J3010; J3490; J7120

== ENCOUNTER 2020-04-23 13:34 | Emergency (ER) | payer MEDICAID ==
--- NOTE | 2020-04-23 14:14 | EDM.PDOC ---
ED HPI GENERAL MEDICAL PROBLEM - General Chief Complaint: Lower Extremity Injury/Pain Stated Complaint: POSSIBLE INFECTION IN RT KNEE, RECENT SURGERY Time Seen by Provider: 04/23/20 13:50 Source of Information: Reports: Patient History Limitations: Reports: No Limitations - History of Present Illness INITIAL COMMENTS - FREE TEXT/NARRATIVE: 24-year-old female who had knee surgery 4 days ago, removed her dressing today and noticed the medial surgical incision is draining. It is not thick drainage or purulent drainage, there is no increased pain redness or warmth to the joint. No fever. Onset: Unknown/Unsure (Unsure of how long the drainage is been present, she just noticed it when she took the bandage off) Location: Reports: Lower Extremity, Right - Related Data Allergies Allergy/AdvReac Type Severity Reaction Status Date / Time No Known Allergies Allergy Verified 04/23/20 13:51 Home Meds: Home Meds Albuterol Sulfate [Albuterol Sulfate Hfa] 1 - 2 puff IN ASDIRECTED PRN 10/26/19 [History] Fluticasone/Salmeterol [Advair 100-50] 1 puff INH BID 10/26/19 [History] Omeprazole 20 mg PO DAILY 10/26/19 [History] lamoTRIgine [Lamotrigine] 50 mg PO DAILY 12/03/19 [History] traMADol [Ultram] 50 mg PO Q6H PRN 7 Days #28 tab 02/15/20 [Rx] Hydrocodone/Acetaminophen [Hydrocodon-Acetaminophen 5-325] 1 tab PO Q6HR PRN [History] Past Medical History HEENT History: Reports: Impaired Vision Other HEENT History: wears glasses Respiratory History: Reports: Asthma, COPD 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 Neurological History: Reports: Migraines Psychiatric History: Reports: Anxiety, Depression, Panic Attack, Suicidal Ideation Endocrine/Metabolic History: Reports: Obesity/BMI 30+ - Infectious Disease History Infectious Disease History: Reports: Chicken Pox - Past Surgical History GI Surgical History: Reports: Cholecystectomy Musculoskeletal Surgical History: Reports: None, Arthroscopic Knee Social & Family History - Family History Cardiac: Reports: Hypertension, [place] Respiratory: Reports: Asthma Neurological: Reports: CVA Psychiatric: Reports: PTSD Endocrine/Metabolic: Reports: Diabetes, type II Oncologic: Reports: Brain, Lung - Tobacco Use Smoking Status *Q: Never Smoker - Caffeine Use Caffeine Use: Reports: Soda Review of Systems - Review of Systems Review Of Systems: See Below Constitutional: Denies: Fever Respiratory: Reports: No Symptoms Cardiovascular: Reports: No Symptoms Genitourinary: Reports: No Symptoms Skin: Reports: Bruising (A small amount of bruising around the anterior knee, postsurgical) Neurological: Reports: No Symptoms. Denies: Paresthesia ED EXAM, GENERAL - Physical Exam Exam: See Below Exam Limited By: No Limitations General Appearance: Alert, No Apparent Distress Head: Atraumatic Respiratory/Chest: No Respiratory Distress Extremities: Other (Exam is otherwise limited to the lower extremities. There are 2 sets of Steri-Strips covering arthroscopic surgical incisions on the right knee, there is no effusion, significant swelling or deformity. There is some bruising and tenderness to palpation but no erythema or redness, the Steri- Strips on the medial incision are stained with some recent drainage but there is no active drainage at this time.) Course - Vital Signs Last Recorded V/S: Last Vital Signs Temp 96.8 F L 04/23/20 13:57 Pulse 77 04/23/20 13:57 Resp 14 04/23/20 13:57 BP 122/72 04/23/20 13:57 Pulse Ox 98 04/23/20 13:57 - Re-Assessments/Exams Free Text/Narrative Re-Assessment/Exam: 04/23/20 14:12 Reassured the patient that this is likely normal postoperative drainage from a small seroma rather than infection. Continue her current postoperative treatment, and return if worsening such as redness, warmth, more purulent or thick drainage or increased pain or fever. Departure - Departure Time of Disposition: 14:24 Disposition: Home, Self-Care 01 Clinical Impression: Seroma after procedure - Discharge Information Instructions: Seroma Referrals: Isabel Guerrero CNM [Primary Care Provider] - Forms: ED Department Discharge Care Plan Goals: Continue current postoperative care and follow Dr. Chahal's instructions. Return if worsening such as fever, increased redness or pain, swelling or warmth of the knee or increased purulent drainage. Clear drainage can be expected. Sepsis Event Note - Evaluation Sepsis Screening Result: No Definite Risk - Focused Exam Vital Signs: Vital Signs Temp Pulse Resp BP Pulse Ox 04/23/20 13:57 96.8 F L 77 14 122/72 98 Date Exam was Performed: 04/23/20 Time Exam was Performed: 17:27
== END 2020-04-23 14:24 | disposition home or self-care (01) ==
LOC: JP.ED 13:34
DX: L76.34 Postprocedural seroma of skin and subcutaneous tissue following other procedure (principal); J44.9 Chronic obstructive pulmonary disease, unspecified; F41.9 Anxiety disorder, unspecified; F32.9 Major depressive disorder, single episode, unspecified; E66.9 Obesity, unspecified; Z68.38 Body mass index [BMI] 38.0-38.9, adult; Z79.899 Other long term (current) drug therapy
CPT/HCPCS: 99283

== ENCOUNTER 2020-05-29 12:06 | Emergency (ER) | payer MEDICAID ==
[2020-05-29] MEDS ORDERED: fentaNYL 100 MCG/2 ML SDV IVPUSH ONE (13:19)
[2020-05-29] MEDS ORDERED: Ondansetron 4 MG/2 ML SDV IVPUSH ONE (13:20)
--- NOTE | 2020-05-29 13:29 | EDM.PDOC ---
ED HPI GENERAL MEDICAL PROBLEM - General Chief Complaint: Abdominal Pain Stated Complaint: RT SIDE ABD PAIN Time Seen by Provider: 05/29/20 13:25 Source of Information: Reports: Patient - History of Present Illness INITIAL COMMENTS - FREE TEXT/NARRATIVE: 24-year-old female with a history of chronic pain and functional constipation presents to the ED with right lower quadrant abdominal pain that started last night. Her pain is throbbing, constant and moderate intensity. It is aggravated by movement especially walking and riding in a car. It is associated with nausea and vomiting but no diarrhea. She denies constipation. She denies chills or fever. She has a history of opioid use for chronic pain but has not used the hydrocodone or tramadol in several days. She usually gets by with ibuprofen. She denies and her last period was approximately 5 months ago. She gets Depakote shots. She is sexually active but denies vaginal discharge or dyspareunia. She has had a cholecystectomy but no other abdominal surgery. She denies a history of ovarian cysts. Right Lower Abdominal Pain Score (Numeric/FACES): 9 - Related Data Allergies Allergy/AdvReac Type Severity Reaction Status Date / Time No Known Allergies Allergy Verified 04/23/20 13:51 Home Meds: Home Meds Albuterol Sulfate [Albuterol Sulfate Hfa] 1 - 2 puff IN ASDIRECTED PRN 10/26/19 [History] Fluticasone/Salmeterol [Advair 100-50] 1 puff INH BID 10/26/19 [History] Omeprazole 20 mg PO DAILY 10/26/19 [History] lamoTRIgine [Lamotrigine] 50 mg PO DAILY 12/03/19 [History] traMADol [Ultram] 50 mg PO Q6H PRN 7 Days #28 tab 02/15/20 [Rx] Hydrocodone/Acetaminophen [[place] 5-325 Tablet] 1 - 2 each PO Q8HR PRN #24 tablet 05/23/20 [Rx] Past Medical History HEENT History: Reports: Impaired Vision Other HEENT History: wears glasses Respiratory History: Reports: Asthma, COPD 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: Reports: Other (See Below) Other LIFE 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: "something removed from my right ovary" Musculoskeletal History: Reports: Other (See Below) Other Musculoskeletal History: right knee pain Neurological History: Reports: Migraines Psychiatric History: Reports: Anxiety, Depression, Panic Attack, Suicidal Ideation Endocrine/Metabolic History: Reports: Obesity/BMI 30+ - Infectious Disease History Infectious Disease History: Reports: Chicken Pox - Past Surgical History GI Surgical History: Reports: Cholecystectomy Musculoskeletal Surgical History: Reports: None, Arthroscopic Knee Other Musculoskeletal Surgeries/Procedures:: right knee scope 04/19/20 Social & Family History - Family History Cardiac: Reports: Hypertension, [place] Respiratory: Reports: Asthma Neurological: Reports: CVA Psychiatric: Reports: PTSD Endocrine/Metabolic: Reports: Diabetes, type II Oncologic: Reports: Brain, Lung - Tobacco Use Smoking Status *Q: Never Smoker - Caffeine Use Caffeine Use: Reports: Soda - Recreational Drug Use Recreational Drug Use: No ED ROS GENERAL - Review of Systems Review Of Systems: See Below Constitutional: Denies: Fever, Chills, Malaise, Diaphoresis HEENT: Reports: No Symptoms Respiratory: Reports: No Symptoms Cardiovascular: Reports: No Symptoms GI/Abdominal: Reports: Abdominal Pain, Nausea, Vomiting. Denies: Constipation, Diarrhea : Reports: Dysuria Skin: Reports: No Symptoms Neurological: Reports: No Symptoms ED EXAM, GI/ABD - Physical Exam Exam: See Below Exam Limited By: No Limitations General Appearance: Alert, WD/WN, Mild Distress Eyes: Bilateral: Normal Appearance Ears: Normal External Exam, Normal Canal Throat/Mouth: Normal Inspection, Normal Oropharynx Neck: Normal Inspection, Supple, Non-Tender Respiratory/Chest: No Respiratory Distress Cardiovascular: Regular Rate, Rhythm, No Murmur GI/Abdominal Exam: Normal Bowel Sounds, Guarding, Other (Tender lower quadrant with guarding but no rigidity. Bowel sounds are normal in all quadrants.) Extremities: Normal Inspection Neurological: Alert, Oriented Psychiatric: Normal Affect, Normal Mood Course - Vital Signs Last Recorded V/S: Last Vital Signs Temp 36.3 C 05/29/20 13:53 Pulse 71 05/29/20 13:53 Resp 12 05/29/20 13:53 BP 120/73 05/29/20 13:53 Pulse Ox 98 05/29/20 13:53 - Orders/Labs/Meds Orders: Active Orders 24 hr Category Date Time Status Abdomen Ltd [US] Stat Exams 05/29/20 13:22 Taken Sodium Chloride 0.9% [Normal Saline] 1,000 ml Med 05/29/20 13:30 Active IV ASDIRECTED Medication Orders Sodium Chloride (Normal Saline) 1,000 mls @ 1,000 mls/hr IV ASDIRECTED PATRICIA Last Admin: 05/29/20 13:44 Dose: 1,000 mls/hr Documented by: SHRUTHI Labs: Laboratory Tests 05/29/20 05/29/20 05/29/20 Range/Units 13:28 13:28 13:33 WBC 4.9 (4.5-11.0) K/uL RBC 4.44 (3.30-5.50) M/uL Hgb 12.3 (12.0-15.0) g/dL Hct 38.2 (36.0-48.0) % MCV 86 (80-98) fL MCH 28 (27-31) pg MCHC 32 (32-36) % Plt Count 267 (150-400) K/uL Neut % (Auto) 54 (36-66) % Lymph % (Auto) 39 (24-44) % [place] % (Auto) 6 (2-6) % Eos % (Auto) 0 L (2-4) % Baso % (Auto) 0 (0-1) % C-Reactive Protein (0.0-0.3) mg/dL Urine Color Yellow (YELLOW) Urine Appearance Slightly cloudy A (CLEAR) Urine pH 6.0 (5.0-8.0) Ur Specific [place] > 1.030 (1.008-1.030) Urine Protein Negative (NEGATIVE) mg/dL Urine Glucose (UA) Negative (NEGATIVE) mg/dL Urine Ketones Negative (NEGATIVE) mg/dL Urine Occult Blood Trace-intact H (NEGATIVE) Urine Nitrite Negative (NEGATIVE) Urine Bilirubin Negative (NEGATIVE) Urine Urobilinogen 0.2 (0.2-1.0) EU/dL Ur Leukocyte Esterase Negative (NEGATIVE) Urine RBC 0-5 (0-5) Urine WBC 0-5 (0-5) Ur Epithelial Cells Moderate Amorphous Sediment Not seen Urine Bacteria Many Urine Mucus Moderate Urine HCG, Qual Negative 05/29/20 Range/Units 13:33 WBC (4.5-11.0) K/uL RBC (3.30-5.50) M/uL Hgb (12.0-15.0) g/dL Hct (36.0-48.0) % MCV (80-98) fL MCH (27-31) pg MCHC (32-36) % Plt Count (150-400) K/uL Neut % (Auto) (36-66) % Lymph % (Auto) (24-44) % [place] % (Auto) (2-6) % Eos % (Auto) (2-4) % Baso % (Auto) (0-1) % C-Reactive Protein 1.19 H (0.0-0.3) mg/dL Urine Color (YELLOW) Urine Appearance (CLEAR) Urine pH (5.0-8.0) Ur Specific [place] (1.008-1.030) Urine Protein (NEGATIVE) mg/dL Urine Glucose (UA) (NEGATIVE) mg/dL Urine Ketones (NEGATIVE) mg/dL Urine Occult Blood (NEGATIVE) Urine Nitrite (NEGATIVE) Urine Bilirubin (NEGATIVE) Urine Urobilinogen (0.2-1.0) EU/dL Ur Leukocyte Esterase (NEGATIVE) Urine RBC (0-5) Urine WBC (0-5) Ur Epithelial Cells Amorphous Sediment Urine Bacteria Urine Mucus Urine HCG, Qual Meds: Medications Generic Name Dose Route Start Last Admin Trade Name Freq PRN Reason Stop Dose Admin Sodium Chloride 1,000 mls @ 1,000 mls/hr 05/29/20 13:30 05/29/20 13:44 Normal Saline IV 1,000 mls/hr ASDIRECTED PATRICIA Administration Discontinued Medications Generic Name Dose Route Start Last Admin Trade Name Freq PRN Reason Stop Dose Admin Fentanyl 50 mcg 05/29/20 13:19 05/29/20 13:51 Sublimaze IVPUSH 05/29/20 13:20 50 mcg ONETIME ONE Administration Ondansetron HCl 4 mg 05/29/20 13:20 05/29/20 13:50 Zofran IVPUSH 05/29/20 13:21 4 mg ONETIME ONE Administration Departure - Departure Time of Disposition: 15:45 Disposition: Home, Self-Care 01 Condition: Good Clinical Impression: Abdominal pain - Discharge Information *PRESCRIPTION DRUG MONITORING PROGRAM REVIEWED*: Yes *COPY OF PRESCRIPTION DRUG MONITORING REPORT IN PATIENT IDALMIS: No Referrals: PCP,None [Primary Care Provider] - Forms: ED Department Discharge Additional Instructions: She presents with acute right lower quadrant pain that started last night. She had nausea and vomiting today but no fever. On exam she was tender but not rigid in the right lower quadrant. She appears well-hydrated. She has a normal white blood count and a CRP that is elevated at 1.19. Urinalysis and tests are unremarkable. She had a pelvic ultrasound that showed no ovarian cysts and very little if any pelvic fluid. On reexam her abdomen is soft. Juana hightower is being discharged home to follow-up with her primary care provider in the clinic in a day or 2 if she is not better. She has hydrocodone at home. She received a prescription of 28 tablets on 05/23 and she can use those as needed for abdominal pain. She is used to take a stool softener or bulk laxative [place] while she is taking hydrocodone. The patient agrees with this plan. She is discharged in stable condition. Sepsis Event Note (ED) - Focused Exam Vital Signs: Vital Signs Temp Pulse Resp BP Pulse Ox 05/29/20 13:53 36.3 C 71 12 120/73 98 05/29/20 12:51 36.3 C 71 12 120/73 98 - My Orders Last 24 Hours: My Active Orders 05/29/20 13:22 Abdomen Ltd [US] Stat 05/29/20 13:30 Sodium Chloride 0.9% [Normal Saline] 1,000 ml IV ASDIRECTED - Assessment/Plan Last 24 Hours: My Active Orders 05/29/20 13:22 Abdomen Ltd [US] Stat 05/29/20 13:30 Sodium Chloride 0.9% [Normal Saline] 1,000 ml IV ASDIRECTED
[2020-05-29] MEDS ORDERED: Sodium Chloride 0.9% 1,000 ML IV SCH (13:30)
--- NOTE | 2020-05-29 15:54 | US ---
Pelvis Non OB Ltd CLINICAL HISTORY: Right pelvic pain FINDINGS: Real-time transabdominal images were obtained through the pelvis. Uterus measures 6.5 x 2.7 x 4.2 cm. Has a normal echotexture. Endometrial stripe measures 2 mm. Right ovary measures 1.8 x 2.1 x 2.3 cm. Left ovary measures 2.7 x 1 point Kendra 1 0.7 cm. Both have normal flow. No free fluid is identified IMPRESSION: Essentially negative pelvic ultrasound
--- NOTE | 2020-05-29 15:55 | US ---
Abdomen Ltd CLINICAL HISTORY: Right lower quadrant pain FINDINGS: Limited real-time images were obtained through the right lower quadrant. The appendix is not definitively identified. There is no mass or abnormal fluid collection. IMPRESSION: Appendix is not identified on scans to the right lower quadrant. There is no abnormal fluid collection noted
== END 2020-05-29 16:13 | disposition home or self-care (01) ==
LOC: JP.ED 12:06
DX: R10.31 Right lower quadrant pain (principal); F41.9 Anxiety disorder, unspecified; F32.9 Major depressive disorder, single episode, unspecified; E66.9 Obesity, unspecified; J44.9 Chronic obstructive pulmonary disease, unspecified; Z68.38 Body mass index [BMI] 38.0-38.9, adult
CPT/HCPCS: 36415; 76705; 76857; 81001; 81025; 85025; 86140; 96361; 96374; 96375; 99284; J2405; J3010; J7030

== ENCOUNTER 2020-06-05 06:19 | Day surgery (SDC) | payer MEDICAID ==
[2020-06-05] MEDS ORDERED: fentaNYL 100 MCG/2 ML SDV ONE (06:50)
[2020-06-05] MEDS ORDERED: Propofol 200 MG/20 ML SDV ONE (06:51)
[2020-06-05] MEDS ORDERED: Midazolam 1 MG/ML 2 ML SDV ONE (06:51)
[2020-06-05] MEDS ORDERED: Sodium Chloride 0.9% 1,000 ML IV SCH (07:00)
--- NOTE | 2020-06-06 08:31 | OR ---
DATE OF PROCEDURE: 06/05/2020 SURGEON: Erick Smith MD PROCEDURES: 1. Esophagogastroduodenoscopy. 2. Colonoscopy. FINDINGS: Small area of inflammation in gastric body (biopsied using cold biopsy forceps). COMPLICATIONS: None. UNDERWATER ROBOTICIST: None. ANESTHESIA: MAC. PREOPERATIVE DIAGNOSIS: Abdominal pain. POSTOPERATIVE DIAGNOSIS: Abdominal pain. RISKS: Risks, benefits, alternatives, and limitations including, but not limited to infection, bleeding, and perforation were explained to the patient, who wished to proceed. PROCEDURE IN DETAIL: The patient was placed in left lateral decubitus position. The EGD scope was introduced and advanced atraumatically to the second part of the duodenum. No evidence of duodenitis or ulceration. Within the stomach, no abnormalities were noted. No evidence of old or new blood. No gastritis. The GE junction was normal. No hiatal hernia. Digital rectal exam was performed next. The scope was introduced and advanced atraumatically to the ileocecal valve. A photo was taken of this. Scope was brought back through the ascending, transverse, descending colon, and retroflexed. No masses, no polyps. No old or new blood. No diverticulosis or diverticulitis. No abnormalities on retroflexion. The patient tolerated the procedure well. Erick Smith MD /[id number]
== END 2020-06-05 09:30 | disposition home or self-care (01) ==
LOC: JP.SDS 06:19
PROVIDERS: ATTEND Surgery
DX: K29.70 Gastritis, unspecified, without bleeding (principal); K21.9 Gastro-esophageal reflux disease without esophagitis; R10.9 Unspecified abdominal pain; F17.200 Nicotine dependence, unspecified, uncomplicated; J44.9 Chronic obstructive pulmonary disease, unspecified; E66.9 Obesity, unspecified; Z11.59 Encounter for screening for other viral diseases; Z68.38 Body mass index [BMI] 38.0-38.9, adult
CPT/HCPCS: 43239; 45378; 87635; 88305; J2250; J2704; J3010; J7030; U0002

== ENCOUNTER 2020-06-09 13:11 | Emergency (ER) | payer MEDICAID ==
[2020-06-09] MEDS ORDERED: Lidocaine 5% 700 MG Patch TOP ONE (15:44)
[2020-06-09] MEDS ORDERED: Ondansetron 4 MG Tab.DIS PO ONE (15:44)
--- NOTE | 2020-06-09 15:44 | EDM.PDOC ---
ED HPI GENERAL MEDICAL PROBLEM - General Chief Complaint: Abdominal Pain Stated Complaint: RIGHT SIDE ABD PAIN Time Seen by Provider: 06/09/20 15:37 Source of Information: Reports: Patient - History of Present Illness INITIAL COMMENTS - FREE TEXT/NARRATIVE: Rishabh is a 25 year old female with a report of a long standing history of right sided abdominal pain undergoing outpatient work-up with primary care provider. Patient had an endoscopy and colonoscopy on Friday and symptoms seems to be doing better. Patient went to the bar on evening with friends and boyfriend but took her first few drinks of her alcoholic beverage which caused her right mid abdominal pain. Patient states the pain causes nausea without vomiting but appetite. Pain is worsen with movement and walking. Patient has been using friend nausea medications and has been given multiple different oral pain medications without improvement including ibuprofen, naproxen and tramadol. Patient has been passing gas and normal bowel movements (less since colonoscopy). Abdomen Pain Score (Numeric/FACES): 9 - Related Data Allergies Allergy/AdvReac Type Severity Reaction Status Date / Time No Known Allergies Allergy Verified 06/09/20 14:35 Home Meds: Home Meds Albuterol Sulfate [Albuterol Sulfate Hfa] 1 - 2 puff IN ASDIRECTED PRN 10/26/19 [History] Fluticasone/Salmeterol [Advair 100-50] 1 puff INH BID 10/26/19 [History] Omeprazole 20 mg PO DAILY 10/26/19 [History] lamoTRIgine [Lamotrigine] 100 mg PO DAILY 12/03/19 [History] Dextroamphetamine/Amphetamine [Adderall 5 mg Tablet] 5 mg PO QAM 06/01/20 [History] Fluticasone Propionate [Flonase] 2 spray NASBOTH DAILY 06/01/20 [History] SUMAtriptan succinate [Imitrex] 25 mg PO ASDIRECTED PRN 06/01/20 [History] busPIRone [Buspar] 5 mg PO DAILY 06/01/20 [History] hydrOXYzine HCL [Hydroxyzine HCl] 20 mg PO TID PRN 06/01/20 [History] medroxyPROGESTERone [Depo-Provera] 150 mg IM .[id number] 06/01/20 [History] Cyclobenzaprine [Flexeril] 5 - 10 mg PO TID PRN 5 Days #15 tab 06/09/20 [Rx] Lidocaine 5% [Lidoderm 5%] 700 mg TRDERM DAILY PRN 15 Days #15 patch 06/09/20 [Rx] Ondansetron [Zofran ODT] 4 mg PO Q6H PRN 2 Days #10 tab.dis 06/09/20 [Rx] Past Medical History HEENT History: Reports: Impaired Vision Other HEENT History: wears glasses Cardiovascular History: Reports: None Respiratory History: Reports: Asthma, COPD Gastrointestinal History: Reports: GERD Genitourinary History: Reports: None 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 (See Below) 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 OCCUPATIONAL HEALTH TECHNICIAN History: "something removed from my right ovary" Musculoskeletal History: Reports: Other (See Below) Other Musculoskeletal History: L knee pain Neurological History: Reports: Migraines Psychiatric History: Reports: Anxiety, Depression, Panic Attack, Suicidal Ideation Endocrine/Metabolic History: Reports: Obesity/BMI 30+ Hematologic History: Reports: None Immunologic History: Reports: None Oncologic (Cancer) History: Reports: None Dermatologic History: Reports: None - Infectious Disease History Infectious Disease History: Reports: Chicken Pox - Past Surgical History HEENT Surgical History: Reports: None Cardiovascular Surgical History: Reports: None Respiratory Surgical History: Reports: None GI Surgical History: Reports: Cholecystectomy Female Surgical History: Reports: None Endocrine Surgical History: Reports: None Neurological Surgical History: Reports: None Musculoskeletal Surgical History: Reports: Arthroscopic Knee Other Musculoskeletal Surgeries/Procedures:: right knee scope 04/19/20 Dermatological Surgical History: Reports: None Social & Family History - Family History Family Medical History: Noncontributory Cardiac: Reports: Hypertension, [place] Respiratory: Reports: Asthma Neurological: Reports: CVA Psychiatric: Reports: PTSD Endocrine/Metabolic: Reports: Diabetes, type II Oncologic: Reports: Brain, Lung - Tobacco Use Smoking Status *Q: Former Smoker Years of Tobacco use: 10 Packs/Tins Daily: 1.5 Used Tobacco, but Quit: Yes Month/Year Tobacco Last Used: december 2019 - Caffeine Use Caffeine Use: Reports: Soda - Alcohol Use Date of Last Drink: 06/08/20 Time of Last Drink: 21:00 - Recreational Drug Use Recreational Drug Use: No ED ROS GENERAL - Review of Systems Review Of Systems: Comprehensive ROS is negative, except as noted in HPI. ED EXAM, GI/ABD - Physical Exam Exam: See Below Exam Limited By: No Limitations General Appearance: Alert, WD/WN, Mild Distress Eyes: Bilateral: Normal Appearance, EOMI Ears: Normal External Exam, Hearing Grossly Normal Nose: Normal Inspection Throat/Mouth: Normal Inspection, Normal Voice, No Airway Compromise Head: Normocephalic Neck: Normal Inspection, Supple, Full Range of Motion Respiratory/Chest: No Respiratory Distress, Lungs Clear Cardiovascular: Normal Peripheral Pulses, Regular Rate, Rhythm GI/Abdominal Exam: Normal Bowel Sounds, Soft, Tender (right mid aneterior abdomen. Pain is worsen with abdominal wall contractionw w/palpation). No: Mass (unable to assess due to abdominal girth), Hepatomegaly (unable to assess due to abdominal girth), Splenomegaly (unable to assess due to abdominal girth) (Female) Exam: Deferred Rectal (Female) Exam: Deferred Extremities: Normal Inspection, Normal Range of Motion, Non-Tender Neurological: Alert, Oriented, CN II-XII Intact, Normal Cognition, Normal Gait, No Motor/Sensory Deficits Psychiatric: Normal Affect, Normal Mood Skin Exam: Warm, Dry, Intact, Normal Color, No Rash Lymphatic: No Adenopathy Course - Vital Signs Last Recorded V/S: Last Vital Signs Temp 36.3 C 06/09/20 14:33 Pulse 70 06/09/20 14:48 Resp 16 06/09/20 14:48 BP 109/75 06/09/20 14:48 Pulse Ox 99 06/09/20 14:48 - Orders/Labs/Meds Orders: Active Orders 24 hr Category Date Time Status Abdomen Series w Chest 1V [CR] Stat Exams 06/09/20 15:00 Taken Meds: Medications Discontinued Medications Generic Name Dose Route Start Last Admin Trade Name Johnie PRN Reason Stop Dose Admin Lidocaine 700 mg 06/09/20 15:44 06/09/20 16:07 Lidoderm 5% TOP 06/09/20 15:45 700 mg ONETIME ONE Administration Ondansetron HCl 4 mg 06/09/20 15:44 06/09/20 16:02 Zofran Odt PO 06/09/20 15:45 4 mg ONETIME ONE Administration - Radiology Interpretation Free Text/Narrative:: Abdominal series w/CXR PA: No free air under diaphragm. No acute cardiopulmonary findings. Normal bowel gas pattern noted. Departure - Departure Time of Disposition: 16:58 Disposition: Home, Self-Care 01 Clinical Impression: Abdominal wall pain in right upper quadrant - Discharge Information Prescriptions: Cyclobenzaprine [Flexeril] 5 - 10 mg PO TID PRN 5 Days #15 tab PRN Reason: Muscle Spasm Lidocaine 5% [Lidoderm 5%] 700 mg TRDERM DAILY PRN 15 Days #15 patch PRN Reason: Pain (Moderate 4-6) Ondansetron [Zofran ODT] 4 mg PO Q6H PRN 2 Days #10 tab.dis PRN Reason: Vomiting Instructions: Abdominal Pain, Adult, Pain Without a Known Cause Referrals: Isabel Guerrero CNM [Primary Care Provider] - Forms: ED Department Discharge Additional Instructions: 1. Lidoderm patch apply in am and remove at bedtime daily. If not covered by insurance or cost prohibitive, OTC pain patch can be used. 2. Flexeril 5-10 mg every 6-8 hours for muscle spasms and pain. 3. Zofran 4mg (1/2-1) tablets every 6-8 hours as needed for nausea to prevent dehydration or vomiting. 4. Follow information about abdominal wall strain/pain. 5. Contact PCP for recheck next week to follow-up regarding ER visit and recent test results. Sepsis Event Note (ED) - Evaluation Sepsis Screening Result: No Definite Risk - Focused Exam Vital Signs: Vital Signs Temp Pulse Resp BP Pulse Ox 06/09/20 14:48 70 16 109/75 99 06/09/20 14:33 36.3 C 71 14 109/75 99 - My Orders Last 24 Hours: My Active Orders 06/09/20 15:00 Abdomen Series w Chest 1V [CR] Stat - Assessment/Plan Last 24 Hours: My Active Orders 06/09/20 15:00 Abdomen Series w Chest 1V [CR] Stat
--- NOTE | 2020-06-12 10:15 | CR ---
Abdomen Series w Chest 1V CLINICAL HISTORY: Status post colonoscopy, pain FINDINGS: Chest gas pattern is nonspecific. No free air is identified. Lungs are clear. There has been previous cholecystectomy IMPRESSION: Nonacute intestinal gas pattern
== END 2020-06-09 17:09 | disposition home or self-care (01) ==
LOC: JP.ED 13:11
DX: R10.11 Right upper quadrant pain (principal); J44.9 Chronic obstructive pulmonary disease, unspecified; K21.9 Gastro-esophageal reflux disease without esophagitis; F41.9 Anxiety disorder, unspecified; F32.9 Major depressive disorder, single episode, unspecified; E66.9 Obesity, unspecified; Z87.891 Personal history of nicotine dependence; Z68.38 Body mass index [BMI] 38.0-38.9, adult
CPT/HCPCS: 74022; 99284; A9270

== ENCOUNTER 2020-06-14 07:31 | Day surgery (SDC) | payer MEDICAID ==
[2020-06-14] MEDS ORDERED: Midazolam 1 MG/ML 2 ML SDV ONE (07:33)
[2020-06-14] MEDS ORDERED: fentaNYL 100 MCG/2 ML SDV ONE (07:33)
[2020-06-14] MEDS ORDERED: Propofol 200 MG/20 ML SDV ONE (07:33)
[2020-06-14] MEDS ORDERED: Nozin Nasal Sanitizer NASBOTH ONE (08:00)
[2020-06-14] MEDS ORDERED: Lactated Ringers 1,000 ML IV SCH (08:00)
[2020-06-14] MEDS ORDERED: ceFAZolin 1 GM in Premix Bag 1 BAG IV ONE (08:00)
[2020-06-14] MEDS ORDERED: Albuterol/Ipratropium 3.0-0.5 MG/3 ML Neb Soln NEB ONE (09:14)
[2020-06-14] MEDS ORDERED: Ondansetron 4 MG/2 ML SDV ONE (09:30)
[2020-06-14] MEDS ORDERED: Succinylcholine 200 MG/10 ML MDV ONE (09:30)
[2020-06-14] MEDS ORDERED: Dexamethasone 4 MG/ML SDV ONE (09:30)
[2020-06-14] MEDS ORDERED: Rocuronium 50 MG/5 ML Vial ONE (09:30)
[2020-06-14] MEDS ORDERED: Ketorolac 60 MG/2 ML SDV ONE (10:01)
[2020-06-14] MEDS ORDERED: Morphine 2 MG/ML SYRINGE IV ONE (10:14)
--- NOTE | 2020-06-22 16:40 | OR ---
DATE OF PROCEDURE: 06/14/2020 SURGEON: Alejandro Chahal MD PREOPERATIVE DIAGNOSIS: Chondromalacia, left knee. POSTOPERATIVE DIAGNOSES: 1. Chondromalacia of medial femoral condyle, left knee, grade 2. 2. Medial plica syndrome. PROCEDURE: 1. Arthroscopy, left knee, with limited synovectomy, excision of plica. 2. Chondroplasty, medial femoral condyle. ANESTHESIA: General. INDICATIONS: Rishabh is a 25-year-old female with a history of chronic anterior and anteromedial left knee pain. She has failed conservative treatment. She now presents for arthroscopic evaluation of the knee with chondroplasty. Risks, benefits, potential complications of the procedure were discussed. PROCEDURE IN DETAIL: After adequate anesthesia was obtained, patient placed supine with a tourniquet about the left upper thigh. Left leg was prepped and draped in a sterile fashion. Leg was exsanguinated and tourniquet inflated to 300 mmHg pressure. Standard inferior, medial, and lateral portals were established. Patellofemoral joint was inspected. This revealed difficulty visualizing the medial aspect of the patellofemoral joint due to encroaching and somewhat tattered medial synovial plica. The patellar articular surface was intact as was the trochlea. The medial plica was debrided, removing the torn section and extending this up through the patellofemoral joint, which allowed visualization of the entire joint. The remainder of the trochlear groove and medial ridge showed intact cartilage. A small indentation was noted in the femoral condyle along the area of the plica. Sweeping down into the medial compartment, medial meniscus was intact. Medial femoral condyle main weightbearing area slightly anterior did show some grade 2 changes. Shaver was used to lightly debride this removing any loose articular pieces. This did not extend down to subchondral bone. Intercondylar notch revealed intact ACL and PCL. Lateral compartment showed an intact meniscus as well as intact articular cartilage. No other abnormalities were identified. No loose fragments or loose bodies were noted including in the medial and lateral gutters. knee was drained. Scope was withdrawn. Port sites were closed in a standard fashion, infiltrated with Marcaine, and a sterile dressing was applied. The patient tolerated the procedure well. There were no complications and taken from the operating room in stable condition. Alejandro Chahal MD /[id number]
== END 2020-06-14 11:55 | disposition home or self-care (01) ==
LOC: JP.SDS 07:31
PROVIDERS: ATTEND Specialist
DX: M67.52 Plica syndrome, left knee (principal); M22.42 Chondromalacia patellae, left knee; J44.9 Chronic obstructive pulmonary disease, unspecified; K21.9 Gastro-esophageal reflux disease without esophagitis; E66.9 Obesity, unspecified; Z68.39 Body mass index [BMI] 39.0-39.9, adult
CPT/HCPCS: 29875; 81025; 94640; A9270; J0330; J0690; J1100; J1885; J2250; J2270; J2405; J2704; J3010; J3490; J7120; J7620-GY

== ENCOUNTER 2020-08-05 23:41 | Emergency (ER) | payer MEDICAID ==
--- NOTE | 2020-08-06 00:20 | EDM.PDOC ---
ED HPI GENERAL MEDICAL PROBLEM - General Chief Complaint: Respiratory Problem Stated Complaint: TIGHTNESS IN CHEST Time Seen by Provider: 08/06/20 00:20 Source of Information: Reports: Patient History Limitations: Reports: No Limitations - History of Present Illness INITIAL COMMENTS - FREE TEXT/NARRATIVE: pt has been more sob than usual. She has skepped her [employer] meds today. 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 She has been wearing a mask. Onset: Today Duration: Hour(s): Location: Reports: Chest Associated Symptoms: Reports: Cough, Shortness of Breath chest pain Pain Score (Numeric/FACES): 8 - Related Data Allergies Allergy/AdvReac Type Severity Reaction Status Date / Time No Known Allergies Allergy Verified 08/05/20 23:58 Home Meds: Home Meds Albuterol Sulfate [Albuterol Sulfate Hfa] 1 - 2 puff IN ASDIRECTED PRN 10/26/19 [History] Fluticasone/Salmeterol [Advair 100-50] 1 puff INH BID 10/26/19 [History] lamoTRIgine [Lamotrigine] 100 mg PO DAILY 12/03/19 [History] Dextroamphetamine/Amphetamine [Adderall 5 mg Tablet] 5 mg PO QAM 06/01/20 [History] Fluticasone Propionate [Flonase] 2 spray NASBOTH DAILY PRN 06/01/20 [History] busPIRone [Buspar] 5 mg PO DAILY 06/01/20 [History] hydrOXYzine HCL [Hydroxyzine HCl] 20 mg PO TID PRN 06/01/20 [History] medroxyPROGESTERone [Depo-Provera] 150 mg IM .[id number] 06/01/20 [History] Past Medical History HEENT History: Reports: Impaired Vision Other HEENT History: wears glasses Cardiovascular History: Reports: None Respiratory History: Reports: Asthma, COPD Gastrointestinal History: Reports: GERD, Other (See Below) Other Gastrointestinal History: right sided abdominal pain Genitourinary History: Reports: None 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 (See Below) 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 SUPERVISORY TRAINING SPECIALIST History: "something removed from my right ovary" Musculoskeletal History: Reports: Other (See Below) Other Musculoskeletal History: L knee pain Neurological History: Reports: Migraines Psychiatric History: Reports: Anxiety, Depression, Panic Attack, Suicidal Ideation Endocrine/Metabolic History: Reports: Obesity/BMI 30+ Hematologic History: Reports: None Immunologic History: Reports: None Oncologic (Cancer) History: Reports: None Dermatologic History: Reports: None - Infectious Disease History Infectious Disease History: Reports: Chicken Pox - Past Surgical History HEENT Surgical History: Reports: None Cardiovascular Surgical History: Reports: None Respiratory Surgical History: Reports: None GI Surgical History: Reports: Cholecystectomy, EGD Female Surgical History: Reports: None Endocrine Surgical History: Reports: None Neurological Surgical History: Reports: None Musculoskeletal Surgical History: Reports: Arthroscopic Knee, Other (See Below) Other Musculoskeletal Surgeries/Procedures:: right knee scope 04/19/20. left knee scope 06/14/20 Dermatological Surgical History: Reports: None Social & Family History - Family History Family Medical History: Noncontributory Cardiac: Reports: Hypertension, [place] Respiratory: Reports: Asthma Neurological: Reports: CVA Psychiatric: Reports: PTSD Endocrine/Metabolic: Reports: Diabetes, type II Oncologic: Reports: Brain, Lung - Tobacco Use Smoking Status *Q: Light Tobacco Smoker Years of Tobacco use: 8 Packs/Tins Daily: 0.1 - Caffeine Use Caffeine Use: Reports: Energy Drinks, Soda - Recreational Drug Use Recreational Drug Use: No ED ROS GENERAL - Review of Systems Review Of Systems: See Below Constitutional: Reports: No Symptoms HEENT: Reports: No Symptoms Respiratory: Reports: Shortness of Breath, Other (pt has been coughing since the 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 ) Endocrine: Reports: No Symptoms GI/Abdominal: Reports: No Symptoms : Reports: No Symptoms Musculoskeletal: Reports: No Symptoms Skin: Reports: No Symptoms ED EXAM, GENERAL - Physical Exam Exam: See Below Free Text/Narrative:: pt arrived stating she is more sob. She has been wearing a mask and this bothers her alot. Exam Limited By: No Limitations General Appearance: Alert, Anxious, Mild Distress Ears: Normal TMs Nose: Normal Inspection Throat/Mouth: Normal Inspection Head: Atraumatic Neck: Normal Inspection Respiratory/Chest: No Respiratory Distress, Other (pt has a clear sounding chest. ) Cardiovascular: Regular Rate, Rhythm GI/Abdominal: Soft, Non-Tender (Female) Exam: Deferred Rectal (Female) Exam: Deferred Back Exam: Normal Inspection Extremities: Normal Inspection Neurological: Alert, Oriented, Normal Cognition Psychiatric: Anxious Course - Vital Signs Last Recorded V/S: Last Vital Signs Temp 36.5 C 08/05/20 23:56 Pulse 76 08/05/20 23:56 Resp 18 08/05/20 23:56 BP 112/51 L 08/05/20 23:56 Pulse Ox 98 08/05/20 23:56 - Orders/Labs/Meds Orders: Active Orders 24 hr Category Date Time Status EKG Documentation Completion [RC] ASDIRECTED Care 08/06/20 00:19 Active EKG 12 Lead [EK] Routine Ther 08/06/20 00:19 Ordered Labs: Laboratory Tests 08/06/20 Range/Units 00:25 WBC 6.3 (4.5-11.0) K/uL RBC 4.16 (3.30-5.50) M/uL Hgb 11.4 L (12.0-15.0) g/dL Hct 36.0 (36.0-48.0) % MCV 87 (80-98) fL MCH 27 (27-31) pg MCHC 32 (32-36) % Plt Count 288 (150-400) K/uL Neut % (Auto) 50 (36-66) % Lymph % (Auto) 44 (24-44) % Mcintosh % (Auto) 5 (2-6) % Eos % (Auto) 1 L (2-4) % Baso % (Auto) 0 (0-1) % - Re-Assessments/Exams Free Text/Narrative Re-Assessment/Exam: 08/06/20 00:46 pt had a normal ekg. Her wbc was normal. 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 Sepsis Event Note (ED) - Evaluation Sepsis Screening Result: No Definite Risk - Focused Exam Vital Signs: Vital Signs Temp Pulse Resp BP Pulse Ox 08/05/20 23:56 36.5 C 76 18 112/51 L 98 08/05/20 23:52 36.5 C 76 18 112/51 L 98 - My Orders Last 24 Hours: My Active Orders 08/06/20 00:19 EKG Documentation Completion [RC] ASDIRECTED EKG 12 Lead [EK] Routine - Assessment/Plan Last 24 Hours: My Active Orders 08/06/20 00:19 EKG Documentation Completion [RC] ASDIRECTED EKG 12 Lead [EK] Routine
== END 2020-08-06 00:53 | disposition home or self-care (01) ==
LOC: JP.ED 23:41
DX: F41.9 Anxiety disorder, unspecified (principal); Z57.39 Occupational exposure to other air contaminants; J44.9 Chronic obstructive pulmonary disease, unspecified; F32.9 Major depressive disorder, single episode, unspecified; E66.9 Obesity, unspecified; F17.210 Nicotine dependence, cigarettes, uncomplicated; Z68.39 Body mass index [BMI] 39.0-39.9, adult; Z79.899 Other long term (current) drug therapy
CPT/HCPCS: 36415; 85025; 93005; 93010; 99283; 99285-25

== ENCOUNTER 2020-08-12 13:19 | Emergency (ER) | payer MEDICAID ==
[2020-08-12] MEDS ORDERED: Ketorolac 60 MG/2 ML SDV IM ONE (16:11)
--- NOTE | 2020-08-12 16:13 | EDM.PDOC ---
ED HPI GENERAL MEDICAL PROBLEM - General Chief Complaint: Back Pain or Injury Stated Complaint: LOWER BACK PAIN Time Seen by Provider: 08/12/20 15:55 Source of Information: Reports: Patient, RN Notes Reviewed History Limitations: Reports: No Limitations - History of Present Illness INITIAL COMMENTS - FREE TEXT/NARRATIVE: Rishabh presents today with complaints of low back pain for the past 2 days. She states she has not been sleeping well and has been working overtime. She reports pain to the lower back without radiation. She states use of heat, physical therapy in the past, muscle relaxers have not helped. She reports use of hydrocodone helps her pain. She denies fever, chills, nausea, vomiting, change in bowel/bladder or other concerns. Lower Back Pain Score (Numeric/FACES): 8 - Related Data Allergies Allergy/AdvReac Type Severity Reaction Status Date / Time No Known Allergies Allergy Verified 08/12/20 15:26 Home Meds: Home Meds Albuterol Sulfate [Albuterol Sulfate Hfa] 1 - 2 puff IN ASDIRECTED PRN 10/26/19 [History] Fluticasone/Salmeterol [Advair 100-50] 1 puff INH BID 10/26/19 [History] lamoTRIgine [Lamotrigine] 100 mg PO DAILY 12/03/19 [History] Dextroamphetamine/Amphetamine [Adderall 5 mg Tablet] 5 mg PO QAM 06/01/20 [History] Fluticasone Propionate [Flonase] 2 spray NASBOTH DAILY PRN 06/01/20 [History] busPIRone [Buspar] 5 mg PO DAILY 06/01/20 [History] hydrOXYzine HCL [Hydroxyzine HCl] 20 mg PO TID PRN 06/01/20 [History] medroxyPROGESTERone [Depo-Provera] 150 mg IM .[id number] 06/01/20 [History] Past Medical History HEENT History: Reports: Impaired Vision Other HEENT History: wears glasses Cardiovascular History: Reports: None Respiratory History: Reports: Asthma, COPD Gastrointestinal History: Reports: GERD, Other (See Below) Other Gastrointestinal History: right sided abdominal pain Genitourinary History: Reports: None 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: "something removed from my right ovary" Musculoskeletal History: Reports: Other (See Below) Other Musculoskeletal History: L knee pain Neurological History: Reports: Migraines Psychiatric History: Reports: Anxiety, Depression, Panic Attack, Suicidal Ideation Endocrine/Metabolic History: Reports: Obesity/BMI 30+ Hematologic History: Reports: None Immunologic History: Reports: None Oncologic (Cancer) History: Reports: None Dermatologic History: Reports: None - Infectious Disease History Infectious Disease History: Reports: Chicken Pox - Past Surgical History HEENT Surgical History: Reports: None Cardiovascular Surgical History: Reports: None Respiratory Surgical History: Reports: None GI Surgical History: Reports: Cholecystectomy, EGD Female Surgical History: Reports: None Endocrine Surgical History: Reports: None Neurological Surgical History: Reports: None Musculoskeletal Surgical History: Reports: Arthroscopic Knee, Other (See Below) Other Musculoskeletal Surgeries/Procedures:: right knee scope 04/19/20. left knee scope 06/14/20 Dermatological Surgical History: Reports: None Social & Family History - Family History Family Medical History: Noncontributory Cardiac: Reports: Hypertension, [place] Respiratory: Reports: Asthma Neurological: Reports: CVA Psychiatric: Reports: PTSD Endocrine/Metabolic: Reports: Diabetes, type II Oncologic: Reports: Brain, Lung - Tobacco Use Smoking Status *Q: Never Smoker - Caffeine Use Caffeine Use: Reports: Energy Drinks, Soda ED ROS GENERAL - Review of Systems Review Of Systems: See Below Constitutional: Reports: No Symptoms Respiratory: Reports: No Symptoms Cardiovascular: Reports: No Symptoms GI/Abdominal: Reports: No Symptoms Musculoskeletal: Reports: Back Pain Skin: Reports: No Symptoms Neurological: Reports: No Symptoms Psychiatric: Reports: No Symptoms Hematologic/Lymphatic: Reports: No Symptoms Immunologic: Reports: No Symptoms ED EXAM,LOWER BACK PAIN/INJURY - Physical Exam Exam: See Below Exam Limited By: No Limitations General Appearance: Alert, WD/WN, No Apparent Distress Eye Exam: Bilateral Eye: Normal Inspection, PERRL Ears: Normal External Exam, Normal Canal, Hearing Grossly Normal, Normal TMs Throat/Mouth: Normal Inspection, Normal Lips, Normal Gums, Normal Oropharynx, Normal Voice, No Airway Compromise Head: Atraumatic, Normocephalic Neck: Normal Inspection, Supple, Non-Tender, Full Range of Motion. No: Lymphadenopathy (R), Lymphadenopathy (L) Respiratory/Chest: No Respiratory Distress, Lungs Clear, Normal Breath Sounds, No Accessory Muscle Use, Chest Non-Tender. No: Crackles, Rales, Rhonchi, Wheezing Cardiovascular: Normal Peripheral Pulses, Regular Rate, Rhythm, No Edema, No Gal lop, No Murmur, No Rub Back Exam: Full Range of Motion, Muscle Spasm (lower paraspinal muscles), Paraspinal Tenderness, Other (negative bilateral leg raises). No: CVA Tendern ess (R), CVA Tenderness (L), Vertebral Tenderness Extremities: Normal Inspection, Normal Range of Motion, Non-Tender, No Pedal Edema, Normal Capillary Refill Neurological: Alert, Normal Mood/Affect, Normal Dorsiflexion, CN II-XII Intact, Normal Plantar Flexion, Normal Gait, Normal Reflexes, No Motor/Sensory Deficits, Oriented x 3 DTR - Lower Extremities: 2+: Knee (R), Knee (L) Psychiatric: Normal Affect, Normal Mood Skin Exam: Warm, Dry, Intact, Normal Color, No Rash Lymphatic: No Adenopathy Course - Vital Signs Last Recorded V/S: Last Vital Signs Temp 36.7 C 08/12/20 15:30 Pulse 77 08/12/20 15:30 Resp 14 08/12/20 15:30 BP 115/72 08/12/20 15:30 Pulse Ox 99 08/12/20 15:30 - Orders/Labs/Meds Meds: Medications Discontinued Medications Generic Name Dose Route Start Last Admin Trade Name Johnie PRN Reason Stop Dose Admin Hydrocodone Bitart/Acetaminophen 1 tab 08/12/20 16:19 08/12/20 16:22 [place] 325-5 Mg PO 08/12/20 16:20 1 tab ONETIME ONE Administration Ketorolac Tromethamine 60 mg 08/12/20 16:11 08/12/20 16:16 Toradol IM 08/12/20 16:12 60 mg ONETIME ONE Administration Departure - Departure Time of Disposition: 16:18 Disposition: Home, Self-Care 01 Clinical Impression: Low back pain - Discharge Information *PRESCRIPTION DRUG MONITORING PROGRAM REVIEWED*: Yes *COPY OF PRESCRIPTION DRUG MONITORING REPORT IN PATIENT IDALMIS: No Instructions: Chronic Back Pain, [id number] Referrals: PCP,None [Primary Care Provider] - Forms: ED Department Discharge Additional Instructions: You have been evaluated and treated for low back pain without radiculopathy or radiation of pain. You were given toradol 60mg IM and hydrocodone 5/325mg PO in the emergency room for pain. You can take meloxicam 7.5mg by mouth twice a day for 10 days for pain and baclofen 10mg by mouth three times a day for muscle pain/spasms. Follow up with primary for recheck in 7 to 10 days. You may need imaging or pain management to help with your pain. Return for any worsening. Sepsis Event Note (ED) - Evaluation Sepsis Screening Result: No Definite Risk - Focused Exam Vital Signs: Vital Signs Temp Pulse Resp BP Pulse Ox 08/12/20 15:30 36.7 C 77 14 115/72 99 - Assessment/Plan Assessment:: Low back pain Plan: Patient evaluated and treated for low back pain without radiculopathy or radiation of pain. She was given toradol 60mg IM and hydrocodone 5/325mg PO in the emergency room for pain. She can take meloxicam 7.5mg by mouth twice a day for 10 days for pain and baclofen 10mg by mouth three times a day for muscle pain/spasms. Follow up with primary for recheck in 7 to 10 days. She may need imaging or pain management to help with your pain. Return for any worsening.
[2020-08-12] MEDS ORDERED: Acetaminophen/HYDROcodone 325-5 MG Tab PO ONE (16:19)
== END 2020-08-12 16:30 | disposition home or self-care (01) ==
LOC: JP.ED 13:19
DX: M54.5 Low back pain (principal); J44.9 Chronic obstructive pulmonary disease, unspecified; K21.9 Gastro-esophageal reflux disease without esophagitis; F41.9 Anxiety disorder, unspecified; F32.9 Major depressive disorder, single episode, unspecified; E66.9 Obesity, unspecified; Z68.41 Body mass index [BMI] 40.0-44.9, adult
CPT/HCPCS: 96372; 99283; A9270; J1885

== ENCOUNTER 2020-10-09 01:27 | Emergency (ER) | payer MEDICAID ==
[2020-10-09] MEDS ORDERED: Ketorolac 10 MG Tab PO ONE (01:59)
--- NOTE | 2020-10-09 02:11 | EDM.PDOC ---
ED HPI GENERAL MEDICAL PROBLEM - General Chief Complaint: Upper Extremity Injury/Pain Stated Complaint: R WRIST PAIN Time Seen by Provider: 10/09/20 02:08 Source of Information: Reports: Patient History Limitations: Reports: No Limitations - History of Present Illness INITIAL COMMENTS - FREE TEXT/NARRATIVE: pt arrived with pain in the rt wrist. she has not fallen and she had no other injury. Pt does do repeated motion at work. Onset: Today Duration: Hour(s): Location: Reports: Upper Extremity, Right Associated Symptoms: Reports: No Other Symptoms Right Wrist Pain Score (Numeric/FACES): 8 - Related Data Allergies Allergy/AdvReac Type Severity Reaction Status Date / Time No Known Allergies Allergy Verified 10/09/20 01:36 Home Meds: Home Meds Albuterol Sulfate [Albuterol Sulfate Hfa] 1 - 2 puff IN ASDIRECTED PRN 10/26/19 [History] Fluticasone/Salmeterol [Advair 100-50] 1 puff INH BID 10/26/19 [History] lamoTRIgine [Lamotrigine] 100 mg PO DAILY 12/03/19 [History] Dextroamphetamine/Amphetamine [Adderall 5 mg Tablet] 5 mg PO QAM 06/01/20 [History] Fluticasone Propionate [Flonase] 2 spray NASBOTH DAILY PRN 06/01/20 [History] busPIRone [Buspar] 5 mg PO DAILY 06/01/20 [History] hydrOXYzine HCL [Hydroxyzine HCl] 20 mg PO TID PRN 06/01/20 [History] medroxyPROGESTERone [Depo-Provera] 150 mg IM .[id number] 06/01/20 [History] Past Medical History HEENT History: Reports: Impaired Vision Other HEENT History: wears glasses Cardiovascular History: Reports: None Respiratory History: Reports: Asthma, COPD Gastrointestinal History: Reports: GERD, Other (See Below) Other Gastrointestinal History: right sided abdominal pain Genitourinary History: Reports: None 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: "something removed from my right ovary" Musculoskeletal History: Reports: Other (See Below) Other Musculoskeletal History: L knee pain Neurological History: Reports: Migraines Psychiatric History: Reports: Anxiety, Depression, Panic Attack, Suicidal Ideation Endocrine/Metabolic History: Reports: Obesity/BMI 30+ Hematologic History: Reports: None Immunologic History: Reports: None Oncologic (Cancer) History: Reports: None Dermatologic History: Reports: None - Infectious Disease History Infectious Disease History: Reports: Chicken Pox - Past Surgical History HEENT Surgical History: Reports: None Cardiovascular Surgical History: Reports: None Respiratory Surgical History: Reports: None GI Surgical History: Reports: Cholecystectomy, EGD Female Surgical History: Reports: None Endocrine Surgical History: Reports: None Neurological Surgical History: Reports: None Musculoskeletal Surgical History: Reports: Arthroscopic Knee, Other (See Below) Other Musculoskeletal Surgeries/Procedures:: right knee scope 04/19/20. left knee scope 06/14/20 Dermatological Surgical History: Reports: None Social & Family History - Family History Family Medical History: Noncontributory Cardiac: Reports: Hypertension, [place] Respiratory: Reports: Asthma Neurological: Reports: CVA Psychiatric: Reports: PTSD Endocrine/Metabolic: Reports: Diabetes, type II Oncologic: Reports: Brain, Lung - Tobacco Use Tobacco Use Status *Q: Former Tobacco User Years of Tobacco use: 9 Used Tobacco, but Quit: Yes Month/Year Tobacco Last Used: 12/2019 - Caffeine Use Caffeine Use: Reports: Energy Drinks, Soda - Recreational Drug Use Recreational Drug Use: No Review of Systems - Review of Systems Review Of Systems: See Below Constitutional: Reports: No Symptoms Eyes: Reports: No Symptoms Ears: Reports: No Symptoms Nose: Reports: No Symptoms Mouth/Throat: Reports: No Symptoms Respiratory: Reports: No Symptoms Cardiovascular: Reports: No Symptoms GI/Abdominal: Reports: No Symptoms Genitourinary: Reports: No Symptoms Musculoskeletal: Reports: Other ( pain on the babin side of the wrist. ) Skin: Reports: No Symptoms ED EXAM, GENERAL - Physical Exam Exam: See Below Free Text/Narrative:: pt has pain on the babin aspect of the rt wrist. She does do repeated motion at work. Exam Limited By: No Limitations General Appearance: Alert, Anxious, Mild Distress Extremities: Other (pt has tenderness on the babin aspect of the wrist. there is no redness or swelling present. ) Neurological: Alert, Oriented, Normal Cognition Course - Vital Signs Last Recorded V/S: Last Vital Signs Temp 36.2 C 10/09/20 01:40 Pulse 102 H 10/09/20 01:40 Resp 18 10/09/20 01:40 BP 111/83 10/09/20 01:40 Pulse Ox 98 10/09/20 01:40 - Orders/Labs/Meds Meds: Medications Discontinued Medications Generic Name Dose Route Start Last Admin Trade Name Johnie PRN Reason Stop Dose Admin Ketorolac Tromethamine 10 mg 10/09/20 01:59 10/09/20 02:03 Toradol PO 10/09/20 02:00 10 mg ONETIME ONE Administration - Re-Assessments/Exams Free Text/Narrative Re-Assessment/Exam: given, short arm splint was appled. Departure - Departure Time of Disposition: 02:08 Disposition: Home, Self-Care 01 Condition: Fair Clinical Impression: Overuse injury - Discharge Information Referrals: Isabel Guerrero CNM [Primary Care Provider] - Forms: ED Department Discharge Care Plan Goals: pt works at [employer] and is doing repeated motion, soak in warm water bid, motrin 600mg tid for 1 week, use short arm splint for comfort. i Sepsis Event Note (ED) - Evaluation Sepsis Screening Result: No Definite Risk - Focused Exam Vital Signs: Vital Signs Temp Pulse Resp BP Pulse Ox 10/09/20 01:40 36.2 C 102 H 18 111/83 98 10/09/20 01:35 36.2 C 102 H 18 111/83 98
== END 2020-10-09 02:23 | disposition home or self-care (01) ==
LOC: JP.ED 01:27
DX: M70.831 Other soft tissue disorders related to use, overuse and pressure, right forearm (principal); J44.9 Chronic obstructive pulmonary disease, unspecified; F32.9 Major depressive disorder, single episode, unspecified; F41.0 Panic disorder [episodic paroxysmal anxiety]; E66.9 Obesity, unspecified; Z87.891 Personal history of nicotine dependence; Z68.41 Body mass index [BMI] 40.0-44.9, adult
CPT/HCPCS: 99283; A9270

== ENCOUNTER 2020-11-03 12:06 | Emergency (ER) | payer MEDICAID ==
--- NOTE | 2020-11-03 12:51 | EDM.PDOC ---
ED HPI GENERAL MEDICAL PROBLEM - General Chief Complaint: Abdominal Pain Stated Complaint: R SIDE LOWER ABD PAIN Time Seen by Provider: 11/03/20 12:40 Source of Information: Reports: Patient, RN History Limitations: Reports: No Limitations - History of Present Illness INITIAL COMMENTS - FREE TEXT/NARRATIVE: 25-year-old female with a 2-month history of lower abdominal pain primarily on the right but sometimes on the left with a negative ultrasound reportedly in [place] yesterday who comes now because somebody told her she might have appendicitis. In addition to the ultrasound she is apparently had lab tests and exams here but never had a CT as far she knows. She has some feeling in her mouth when she wakes up in the morning but no nausea or vomiting ever. She has no fever or chills. She cannot be she says because she has an implant. The pain is sometimes there at night but usually she can sleep. She awakens with it. It is aching sometimes stabbing. She may go some hours during the day without pain but is there every day and recurrently. Her gallbladder was gone for years ago. Denies any pain on intercourse. Duration: Chronic Location: Reports: Abdomen Quality: Reports: Ache, Stabbing Severity: Mild Improves with: Reports: None Worsens with: Reports: None Associated Symptoms: Reports: No Other Symptoms Right Lower Abdomen Pain Score (Numeric/FACES): 6 - Related Data Allergies Allergy/AdvReac Type Severity Reaction Status Date / Time No Known Allergies Allergy Verified 11/03/20 12:23 Home Meds: Home Meds Albuterol Sulfate [Albuterol Sulfate Hfa] 1 - 2 puff IN ASDIRECTED PRN 10/26/19 [History] Fluticasone/Salmeterol [Advair 100-50] 1 puff INH BID 10/26/19 [History] lamoTRIgine [Lamotrigine] 100 mg PO DAILY 12/03/19 [History] Dextroamphetamine/Amphetamine [Adderall 5 mg Tablet] 5 mg PO QAM 06/01/20 [History] Fluticasone Propionate [Flonase] 2 spray NASBOTH DAILY PRN 06/01/20 [History] busPIRone [Buspar] 5 mg PO DAILY 06/01/20 [History] hydrOXYzine HCL [Hydroxyzine HCl] 20 mg PO TID PRN 06/01/20 [History] medroxyPROGESTERone [Depo-Provera] 150 mg IM .[id number] 06/01/20 [History] Past Medical History HEENT History: Reports: Impaired Vision Other HEENT History: wears glasses Cardiovascular History: Reports: None Respiratory History: Reports: Asthma, COPD Gastrointestinal History: Reports: GERD, Other (See Below) Other Gastrointestinal History: right sided abdominal pain Genitourinary History: Reports: None 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: "something removed from my right ovary" Musculoskeletal History: Reports: Other (See Below) Other Musculoskeletal History: L knee pain Neurological History: Reports: Migraines Psychiatric History: Reports: Anxiety, Depression, Panic Attack, Suicidal Ideation Endocrine/Metabolic History: Reports: Obesity/BMI 30+ Hematologic History: Reports: None Immunologic History: Reports: None Oncologic (Cancer) History: Reports: None Dermatologic History: Reports: None - Infectious Disease History Infectious Disease History: Reports: Chicken Pox - Past Surgical History HEENT Surgical History: Reports: None Respiratory Surgical History: Reports: None GI Surgical History: Reports: Cholecystectomy, EGD Endocrine Surgical History: Reports: None Musculoskeletal Surgical History: Reports: Arthroscopic Knee, Other (See Below) Other Musculoskeletal Surgeries/Procedures:: right knee scope 04/19/20. left knee scope 06/14/20 Social & Family History - Family History Family Medical History: No Pertinent Family History Cardiac: Reports: Hypertension, [place] Respiratory: Reports: Asthma Neurological: Reports: CVA Psychiatric: Reports: PTSD Endocrine/Metabolic: Reports: Diabetes, type II Oncologic: Reports: Brain, Lung - Tobacco Use Tobacco Use Status *Q: Never Tobacco User - Caffeine Use Caffeine Use: Reports: Soda - Recreational Drug Use Recreational Drug Use: No ED ROS GENERAL - Review of Systems Review Of Systems: See Below Constitutional: Reports: No Symptoms HEENT: Reports: No Symptoms Respiratory: Reports: No Symptoms Cardiovascular: Reports: No Symptoms Endocrine: Reports: No Symptoms : Reports: No Symptoms Musculoskeletal: Reports: No Symptoms Skin: Reports: No Symptoms Neurological: Reports: No Symptoms ED EXAM, GI/ABD - Physical Exam Exam: See Below Text/Narrative:: Alert cooperative patient somewhat overweight lying quietly on the gurney appears not to be in any obvious pain. Head neck and chest exam are entirely normal with regular rate and rhythm no abnormal heart sounds Abdomen is soft with active bowel sounds with slight tenderness on deep palpation in the lower abdomen right and left. No masses no rebound Skin extremities appeared entirely normal. Neurologic is physiologic. She says she had a recent pelvic exam and it was negative. Course - Vital Signs Text/Narrative:: 25-year-old female with 2-month history of persistent intermittent lower abdominal pain right and left worried about appendicitis. CT of the abdomen today is normal with normal-appearing appendix. White count differential is normal. Chemistries are normal. CRP is slightly elevated. She is discharged after reevaluation and I advised Motrin Tylenol trial and follow-up with her doctor Last Recorded V/S: Last Vital Signs Temp 36.1 C 11/03/20 12: Pulse 85 11/03/20 12:25 Resp 14 11/03/20 12:25 BP 120/61 11/03/20 12:25 Pulse Ox 96 11/03/20 12:25 - Orders/Labs/Meds Labs: Laboratory Tests 11/03/20 11/03/20 11/03/20 Range/Units 13:07 13:07 14:42 WBC 5.7 (4.5-11.0) K/uL RBC 4.38 (3.30-5.50) M/uL Hgb 12.0 (12.0-15.0) g/dL Hct 37.3 (36.0-48.0) % MCV 85 (80-98) fL MCH 27 (27-31) pg MCHC 32 (32-36) % Plt Count 283 (150-400) K/uL Sodium 139 L (140-148) mmol/L Potassium 3.8 (3.6-5.2) mmol/L Chloride 104 (100-108) mmol/L Carbon Dioxide 28 (21-32) mmol/L Anion Gap 10.8 (5.0-14.0) mmol/L BUN 11 (7-18) mg/dL Creatinine 0.9 (0.6-1.0) mg/dL Est Cr Clr Drug Dosing 84.49 mL/min Estimated GFR (MDRD) > 60 (>60) Glucose 130 H (74-106) mg/dL Calcium 8.5 (8.5-10.1) mg/dL Total Bilirubin 0.2 (0.2-1.0) mg/dL AST 9 L (15-37) U/L ALT 12 (12-78) U/L Alkaline Phosphatase 51 (46-116) U/L C-Reactive Protein 1.82 H (0.0-0.3) mg/dL Total Protein 6.5 (6.4-8.2) g/dL Albumin 3.3 L (3.4-5.0) g/dL Globulin 3.2 (2.3-3.5) g/dL Albumin/Globulin Ratio 1.0 L (1.2-2.2) Urine Color Yellow (YELLOW) Urine Appearance Clear (CLEAR) Urine pH 7.0 (5.0-8.0) Ur Specific [place] 1.020 (1.008-1.030) Urine Protein Negative (NEGATIVE) mg/dL Urine Glucose (UA) Negative (NEGATIVE) mg/dL Urine Ketones Negative (NEGATIVE) mg/dL Urine Occult Blood Negative (NEGATIVE) Urine Nitrite Negative (NEGATIVE) Urine Bilirubin Negative (NEGATIVE) Urine Urobilinogen 0.2 (0.2-1.0) EU/dL Ur Leukocyte Esterase Negative (NEGATIVE) Urine RBC Not seen (0-5) Urine WBC Not seen (0-5) Ur Epithelial Cells Moderate Urine Bacteria Not seen Meds: Medications Discontinued Medications Generic Name Dose Route Start Last Admin Trade Name Freq PRN Reason Stop Dose Admin Sodium Chloride 85 mls @ 3 mls/sec 11/03/20 13:34 11/03/20 13:57 Normal Saline IV 11/03/20 13:35 3 mls/sec ONETIME ONE Administration Iopamidol 150 ml 11/03/20 13:45 11/03/20 13:57 Isovue-300 (61%) IV 11/03/20 13:46 150 ml . DIRECTED PATRICIA Administration Sodium Chloride 10 ml 11/03/20 13:34 11/03/20 13:57 Saline Flush FLUSH 11/03/20 13:35 10 ml ONETIME PRN Administration PER RADIOLOGY PROTOCOL Departure - Departure Time of Disposition: 15:32 Disposition: Home, Self-Care 01 Condition: Good Clinical Impression: Abdominal pain - Discharge Information Referrals: Isabel Guerrero CNM [Primary Care Provider] - Forms: ED Department Discharge Additional Instructions: I suggest 400 mg of Motrin and 500 of Tylenol about 4 times a day for discomfort and see if that helps. And make an appointment with your private doctor for reevaluation Sepsis Event Note (ED) - Evaluation Sepsis Screening Result: No Definite Risk - Focused Exam Vital Signs: Vital Signs Temp Pulse Resp BP Pulse Ox 11/03/20 12:25 36.1 C 85 14 120/61 96
[2020-11-03] MEDS ORDERED: Sodium Chloride 0.9% 10 ML Syringe FLUSH PRN (13:34)
[2020-11-03] MEDS ORDERED: Iopamidol 612 MG/ML 150 ML Bottle IV SCH (13:45)
--- NOTE | 2020-11-03 14:31 | CRLCT ---
Indication: Two-month history of intermittent lower abdominal pain Technique: A CT volumetric acquisition was performed of the abdomen and pelvis during intravenous infusion of 150 cc of Isovue-300 Comparison: CT abdomen and pelvis dated 06/20/2020 Findings: The lung bases are clear. Patient`s liver and spleen demonstrate normal size and uniform enhancement. The gallbladder has been resected. The bile ducts are normal in size. There is no evidence mass effect or inflammation within the pancreas. The kidneys and adrenal glands appear normal. There is no evidence of retroperitoneal lymphadenopathy. The appendix is visualized in a retrocecal location and appears normal. There is normal appearance of the small intestine and colon. The uterus and ovaries are of normal size. Urinary bladder appears normal. The ventral abdominal wall musculature appears intact. Impression: No acute process noted within the abdomen and pelvis Dictated by Willem Tripp MD @ 11/03/2020 2:30:05 PM Please note that all CT scans at this facility use dose modulation, iterative reconstruction, and/or weight-based dosing when appropriate to reduce radiation dose to as low as reasonably achievable. Dictated by: Willem Tripp MD @ 11/03/2020 14:30:31 (Electronically Signed)
== END 2020-11-03 15:44 | disposition home or self-care (01) ==
LOC: JP.ED 12:06
DX: R10.31 Right lower quadrant pain (principal); F41.9 Anxiety disorder, unspecified; E66.9 Obesity, unspecified; J44.9 Chronic obstructive pulmonary disease, unspecified; F32.9 Major depressive disorder, single episode, unspecified; Z68.41 Body mass index [BMI] 40.0-44.9, adult; Z79.899 Other long term (current) drug therapy
CPT/HCPCS: 36415; 74177; 80053; 81001; 85027; 86140; 99284; Q9967

== ENCOUNTER 2021-02-07 06:50 | Day surgery (SDC) | payer MEDICAID ==
[2021-02-07] MEDS ORDERED: Bupivacaine 0.5% 30 ML SDV ONE (06:53)
[2021-02-07] MEDS ORDERED: Nozin Nasal Sanitizer NASBOTH ONE (07:30)
[2021-02-07] MEDS ORDERED: Lactated Ringers 1,000 ML IV SCH (07:30)
[2021-02-07] MEDS ORDERED: ceFAZolin 2 GM in Premix Bag 1 BAG IV ONE (08:00)
[2021-02-07] MEDS ORDERED: Rocuronium 50 MG/5 ML Vial ONE (08:15)
[2021-02-07] MEDS ORDERED: Dexamethasone 4 MG/ML SDV ONE (08:15)
[2021-02-07] MEDS ORDERED: Propofol 200 MG/20 ML SDV ONE (08:15)
[2021-02-07] MEDS ORDERED: Succinylcholine 200 MG/10 ML MDV ONE (08:15)
[2021-02-07] MEDS ORDERED: Neostigmine Methylsulfate 1 MG/ML 5 ML Syringe ONE (08:15)
[2021-02-07] MEDS ORDERED: Ondansetron 4 MG/2 ML SDV ONE (08:15)
[2021-02-07] MEDS ORDERED: Glycopyrrolate 0.2 MG/ML 5 ML MDV ONE (08:15)
[2021-02-07] MEDS ORDERED: fentaNYL 250 MCG/5 ML SDV ONE (08:17)
[2021-02-07] MEDS ORDERED: fentaNYL 100 MCG/2 ML SDV ONE (09:51)
[2021-02-07] MEDS ORDERED: Ketorolac 60 MG/2 ML SDV ONE (10:08)
[2021-02-07] MEDS ORDERED: Morphine 2 MG/ML SYRINGE IVPUSH PRN (10:19)
[2021-02-07] MEDS ORDERED: Magnesium Hydroxide 400 MG/5 ML Susp 30 ML Cup PO PRN (10:19)
[2021-02-07] MEDS ORDERED: Acetaminophen 325 MG Tab PO PRN (10:19)
[2021-02-07] MEDS ORDERED: Ondansetron 4 MG/2 ML SDV IVPUSH PRN (10:19)
[2021-02-07] MEDS ORDERED: Acetaminophen/oxyCODONE 325-5 MG Tab PO PRN (10:19)
[2021-02-07] MEDS ORDERED: Albuterol 8 GM Inhaler INH PRN (10:29)
[2021-02-07] MEDS ORDERED: Sodium Chloride 0.9% 1,000 ML IV SCH (10:30)
[2021-02-07] MEDS ORDERED: Cyclobenzaprine 10 MG Tab PO PRN (10:31)
[2021-02-07] MEDS ORDERED: Fluticasone Propionate Nasal Spray 16 GM Bottle NASBOTH PRN (10:31)
[2021-02-07] MEDS ORDERED: Methocarbamol 500 MG Tab PO PRN (10:31)
[2021-02-07] MEDS ORDERED: Albuterol/Ipratropium 3.0-0.5 MG/3 ML Neb Soln INH PRN (10:31)
[2021-02-07] MEDS ORDERED: hydrOXYzine HCl 10 MG Tab PO PRN (10:31)
[2021-02-07] MEDS: Acetaminophen/HYDROcodone 325-5 MG Tab PO PRN ×2 (12:38→20:52)
[2021-02-07] MEDS: Dicyclomine 10 MG Cap PO SCH ×3 (12:42→20:48)
[2021-02-07] MEDS: metFORMIN 500 MG Tab PO SCH (17:11)
[2021-02-07] MEDS: Ketorolac 30 MG/ML SDV IVPUSH SCH (17:12)
[2021-02-07] MEDS: Docusate Sodium 100 MG Cap PO SCH (20:48)
[2021-02-07] MEDS: Aspirin 325 MG Tab.EC PO SCH (20:48)
[2021-02-07] MEDS: Nozin Nasal Sanitizer NASBOTH SCH (20:57)
[2021-02-07] MEDS: Formoterol/Mometasone 100-5 MCG 8.8 GM Inhaler IH SCH (20:58)
[2021-02-08] MEDS: Ketorolac 30 MG/ML SDV IVPUSH SCH ×2 (02:01→10:41)
[2021-02-08] MEDS: Acetaminophen/HYDROcodone 325-5 MG Tab PO PRN ×3 (02:17→12:39)
[2021-02-08] MEDS: Dicyclomine 10 MG Cap PO SCH ×3 (07:28→16:57)
[2021-02-08] MEDS: Formoterol/Mometasone 100-5 MCG 8.8 GM Inhaler IH SCH (07:29)
[2021-02-08] MEDS ORDERED: Pantoprazole 40 MG Tab.CR PO SCH (07:30)
[2021-02-08] MEDS ORDERED: PHENTERMINE HCL 37.5 MG PO SCH (07:30)
[2021-02-08] MEDS: metFORMIN 500 MG Tab PO SCH ×2 (08:10→16:57)
[2021-02-08] MEDS: Docusate Sodium 100 MG Cap PO SCH (08:53)
[2021-02-08] MEDS: Nozin Nasal Sanitizer NASBOTH SCH (08:53)
[2021-02-08] MEDS: Aspirin 325 MG Tab.EC PO SCH (08:53)
[2021-02-08] MEDS ORDERED: Loratadine 10 MG Tab PO SCH (09:00)
[2021-02-08] MEDS ORDERED: Amphetamine/Dextroamphetamine Salts 10 MG Cap.ER PO SCH (09:00)
[2021-02-08] MEDS ORDERED: Escitalopram 20 MG Tab PO SCH (09:00)
--- NOTE | 2021-02-08 14:27 | PCM.DCSUM1 ---
Discharge Summary - Hospital Course HPI Initial Comments: Patient with R knee pain, catching, and instability after R knee scope in mid- 2019. No relief from scope, failed conservative management with PT and taping, elected to undergo a R tibial tubercle osteotomy. Admitted to same day surgery for pain management and therapy services post-operatively. Diagnosis: Stroke: No Modified [place] Scale: No Symptoms at All Modified [place] Scale Score: 0 - Discharge Data Discharge Date: 02/08/21 Discharge Disposition: Home, Self-Care 01 Condition: Good - Referral to Home Health Date of Face to Face Encounter: 02/08/21 Primary Care Physician: Isabel Guerrero CNM - Discharge Diagnosis/Problem(s) (1) S/P knee surgery SNOMED Code(s): 157593283, [id number], [id number] ICD Code: Z98.890 - OTHER SPECIFIED POSTPROCEDURAL STATES Status: Acute Current Visit: Yes Problem Details: Right tibial tubercle osteotomy - Patient Summary/Data Operative Procedure(s) Performed: R tibial tubercle osteotomy Consults: Consultations 02/07/21 10:19 PT Evaluation and Treatment [CONS] Routine Please Evaluate and Treat. PT Reason for Consult: Post op Ortho Surgery Special Instructions: WBAT on right with brace and ctrutches This query below is only for informational purposes and is not editable. Hospital Course: Patient is a pleasant 25 y/o female, s/p R tibial tubercle osteotomy, POD#1. Patient tolerated surgery well with no major complications. Patient stayed on [facility] for pain management and therapy services to aid in safe discharge to home. Pain has been fairly well controlled post-operatively with [place]. Patient has been tolerating regular diet well with no nausea/emesis. Patient participated in PT; ambulating with crutches with hinged extension brace on R knee. Demonstrated ability to safely transfer into and out of bed ind ependently. Exam: R knee incision healing well; dried blood on steri strips. No surrounding erythema. Very mild edema of R knee. Mild ecchymosis around superior aspect of tibia. R distal LE neurovascular intact. - Patient Instructions Diet: Regular Diet as Tolerated Activity: Apply Ice, Elevate Extremity, Partial Weight Bearing Driving: Do Not Drive Showering/Bathing: Shower in AM Wound/Incision Care: Keep Operative Site/Wound Site Clean and Dry, Change Dressing Daily Notify Provider of: Fever, Increased Pain, Swelling and Redness, Drainage - Discharge Plan *PRESCRIPTION DRUG MONITORING PROGRAM REVIEWED*: Not Applicable *COPY OF PRESCRIPTION DRUG MONITORING REPORT IN PATIENT IDALMIS: Not Applicable Prescriptions/Med Rec: Acetaminophen/HYDROcodone [[place] 325-5 MG] 1 - 2 tab PO Q6H PRN 7 Days #40 tab PRN Reason: Pain Home Medications: Home Meds Albuterol Sulfate [Albuterol Sulfate Hfa] 1 - 2 puff IN ASDIRECTED PRN 10/26/19 [History] Fluticasone/Salmeterol [Advair 100-50] 1 puff INH BID 10/26/19 [History] Fluticasone Propionate [Flonase] 2 spray NASBOTH DAILY PRN 06/01/20 [History] hydrOXYzine HCL [Hydroxyzine HCl] 20 mg PO TID PRN 06/01/20 [History] Cyclobenzaprine [Flexeril] 10 mg PO DAILY PRN 12/18/20 [History] Loratadine [Claritin] 10 mg PO DAILY 12/18/20 [History] Omeprazole 20 mg PO DAILY 12/18/20 [History] metFORMIN [Glucophage] 500 mg PO BID 12/18/20 [History] Albuterol/Ipratropium [DuoNeb 3.0-0.5 MG/3 ML] 3 ml INH Q4H PRN 01/25/21 [History] Escitalopram Oxalate [Lexapro] 20 mg PO DAILY 01/25/21 [History] Naproxen 500 mg PO BID 01/25/21 [History] Phentermine HCl 37.5 mg PO DAILY 01/25/21 [History] methocarbamoL [Methocarbamol] 500 mg PO TID PRN 01/25/21 [History] Amphetamine/Dextroamphetamine [Adderall XR] 10 mg PO DAILY 02/07/21 [History] Dicyclomine [Bentyl] 10 mg PO QIDACANDBED 02/07/21 [History] Acetaminophen/HYDROcodone [[place] 325-5 MG] 1 - 2 tab PO Q6H PRN 7 Days #40 tab 02/08/21 [Rx] Oxygen Therapy Mode: Room Air Patient Handouts: Preventing Problems After Surgery, Preventing Constipation After Surgery Referrals: Alejandro Chahal MD [Physician] - 02/22/21 1:45 pm ([facility] at ER desk 15 minutes prior to appointment. ) - Discharge Summary/Plan Comment DC Time >30 min.: No Discharge Summary/Plan Comment: * Patient to continue wearing hinged extension knee brace. * Script sent for 1 wk supply of pain medication. * Patient to take 1 Aspirin BID for DVT prophylaxis. * Patient to follow up with orthopedics in 2 weeks. * Encouraged patient to call if concerns or questions arise prior to scheduled apt. - General Info Date of Service: 02/08/21 Admission Dx/Problem (Free Text: R tibial tubercle osteotomy Functional Status: Reports: Pain Controlled, Tolerating Diet, Ambulating (with hinged brace and crutches ) - Review of Systems General: Reports: No Symptoms HEENT: Reports: No Symptoms Pulmonary: Reports: No Symptoms Cardiovascular: Reports: No Symptoms Gastrointestinal: Reports: No Symptoms Genitourinary: Reports: No Symptoms Musculoskeletal: Reports: Leg Pain (right ), Joint Pain (right knee ) Skin: Reports: No Symptoms Neurological: Reports: No Symptoms Psychiatric: Reports: No Symptoms - Patient Data Vitals - Most Recent: Last Vital Signs Temp 98.0 F 02/08/21 10:44 Pulse 78 02/08/21 10:44 Resp 16 02/08/21 10:44 BP 116/56 L 02/08/21 10:44 Pulse Ox 97 02/08/21 10:44 Weight - Most Recent: 248 lb 3.2 oz I&O - Last 24 hours: Intake & Output 02/07/21 02/08/21 02/08/21 22:59 06:59 14:59 Intake Total 1927 1560 Balance 1928 1560 Med Orders - Current: Current Medications Acetaminophen (Acetaminophen 325 Mg Tab) 650 mg PO Q4H PRN PRN Reason: Pain/Fever Hydrocodone Bitart/Acetaminophen (Acetaminophen/Hydrocodone 325-5 Mg Tab) 2 tab PO Q4H PRN PRN Reason: Pain (mild 1-3) Last Admin: 02/08/21 12:39 Dose: 2 tab Documented by: Albuterol (Albuterol 8 Gm Inhaler) 0 gm INH Q4H PRN PRN Reason: Shortness of Breath Albuterol/Ipratropium (Albuterol/Ipratropium 3.0-0.5 Mg/3 Ml Neb Soln) 3 ml INH Q4H PRN PRN Reason: Shortness of Breath Amphetamine/Dextroamphetamine (Amphetamine/Dextroamphetamine Salts 10 Mg Cap.Er) 10 mg PO DAILY [facility] Last Admin: 02/08/21 08:53 Dose: 10 mg Documented by: Aspirin (Aspirin 325 Mg Tab.Ec) 325 mg PO BID [facility] Last Admin: 02/08/21 08:53 Dose: 325 mg Documented by: Bandage/Support Products (Nozin Nasal Sales Trainee) 1 applic NASBOTH BID [facility] Stop: 02/13/21 21:01 Last Admin: 02/08/21 08:53 Dose: 1 applic Documented by: Cyclobenzaprine HCl (Cyclobenzaprine 10 Mg Tab) 10 mg PO DAILY PRN PRN Reason: Spasms Dicyclomine HCl (Dicyclomine 10 Mg Cap) 10 mg PO QIDACANDBED [facility] Last Admin: 02/08/21 10:42 Dose: 10 mg Documented by: Docusate Sodium (Docusate Sodium 100 Mg Cap) 100 mg PO BID [facility] Last Admin: 02/08/21 08:53 Dose: 100 mg Documented by: Escitalopram Oxalate (Escitalopram 20 Mg Tab) 20 mg PO DAILY [facility] Last Admin: 02/08/21 08:53 Dose: 20 mg Documented by: Fluticasone Propionate (Fluticasone Propionate Nasal [place] 16 Gm Bottle) 0 gm NASBOTH DAILY PRN PRN Reason: Congestion Hydroxyzine HCl (Hydroxyzine Hcl 10 Mg Tab) 20 mg PO TID PRN PRN Reason: Anxiety Ketorolac Tromethamine (Ketorolac 30 Mg/Ml Sdv) 30 mg IVPUSH Q8H [facility] Stop: 02/08/21 18:01 Last Admin: 02/08/21 10:41 Dose: 30 mg Documented by: Loratadine (Loratadine 10 Mg Tab) 10 mg PO DAILY [facility] Last Admin: 02/08/21 08:53 Dose: 10 mg Documented by: Magnesium Hydroxide (Magnesium Hydroxide 400 Mg/5 Ml Susp 30 Ml Cup) 30 ml PO BID PRN PRN Reason: Constipation Metformin HCl (Metformin 500 Mg Tab) 500 mg PO BIDMEALS [facility] Last Admin: 02/08/21 08:10 Dose: 500 mg Documented by: Methocarbamol (Methocarbamol 500 Mg Tab) 500 mg PO TID PRN PRN Reason: Spasms Last Admin: 02/07/21 15:33 Dose: 500 mg Documented by: Mometasone Furoate/Formoterol Fumar (Formoterol/Mometasone 100-5 Mcg 8.8 Gm Inhaler) 0 puff IH BIDRT [facility] Last Admin: 02/08/21 07:29 Dose: Not Given Documented by: Morphine Sulfate (Morphine 2 Mg/Ml Syringe) 2 mg IVPUSH Q1H PRN PRN Reason: Breakthrough Pain (Phentermine Hcl [ Phentermine Hcl] 37. 5 Mg Capsule)*Pom* [facility].5 [facility] Last Admin: 02/08/21 07:28 Dose: Not Given Documented by: Ondansetron HCl (Ondansetron 4 Mg/2 Ml Sdv) 4 mg IVPUSH Q6H PRN PRN Reason: Nausea/Vomiting Oxycodone/Acetaminophen (Acetaminophen/Oxycodone 325-5 Mg Tab) 2 tab PO Q4H PRN PRN Reason: Pain (moderate 4-6) Pantoprazole Sodium (Pantoprazole 40 Mg Tab.Cr) 40 mg PO [facility] Last Admin: 02/08/21 07:28 Dose: 40 mg Documented by: Discontinued Medications Bandage/Support Products (Nozin Nasal Sales Trainee) 1 applic NASBOTH ONETIME ONE Stop: 02/07/21 07:31 Last Admin: 02/07/21 07:13 Dose: 1 applic Documented by: Bupivacaine HCl (Bupivacaine 0.5% 30 Ml Sdv) Confirm Administered Dose 30 ml .ROUTE .STK-MED ONE Stop: 02/07/21 06:54 Last Admin: 02/07/21 09:42 Dose: 30 ml Documented by: Dexamethasone (Dexamethasone 4 Mg/Ml Sdv) Confirm Administered Dose 4 mg .ROUTE .STK-MED ONE Stop: 02/07/21 08:16 Fentanyl (Fentanyl 250 Mcg/5 Ml Sdv) Confirm Administered Dose 250 mcg .ROUTE .STK-MED ONE Stop: 02/07/21 08:18 Fentanyl (Fentanyl 100 Mcg/2 Ml Sdv) Confirm Administered Dose 100 mcg .ROUTE .STK-MED ONE Stop: 02/07/21 09:52 Glycopyrrolate (Glycopyrrolate 0.2 Mg/Ml 5 Ml Mdv) Confirm Administered Dose 1 mg .ROUTE .STK-MED ONE Stop: 02/07/21 08:16 Cefazolin Sodium/Dextrose 2 gm (/ Premix) 50 mls @ 100 mls/hr IV ONETIME ONE Stop: 02/07/21 08:29 Last Admin: 02/07/21 08:54 Dose: 100 mls/hr Documented by: Lactated Ringer's (Ringers, Lactated) 1,000 mls @ 75 mls/hr IV ASDIRECTED [facility] Last Admin: 02/07/21 07:14 Dose: 75 mls/hr Documented by: Sodium Chloride (Normal Saline) 1,000 mls @ 125 mls/hr IV ASDIRECTED [facility] Last Admin: 02/07/21 11:44 Dose: 125 mls/hr Documented by: Ketorolac Tromethamine (Ketorolac 60 Mg/2 Ml Sdv) Confirm Administered Dose 120 mg .ROUTE .STK-MED ONE Stop: 02/07/21 10:09 Neostigmine Methylsulfate (Neostigmine Methylsulfate 1 Mg/Ml 5 Ml Syringe) Confirm Administered Dose 5 mg .ROUTE .STK-MED ONE Stop: 02/07/21 08:16 Ondansetron HCl (Ondansetron 4 Mg/2 Ml Sdv) Confirm Administered Dose 4 mg .ROUTE .STK-MED ONE Stop: 02/07/21 08:16 Propofol (Propofol 200 Mg/20 Ml Sdv) Confirm Administered Dose 200 mg .ROUTE .STK-MED ONE Stop: 02/07/21 08:16 Rocuronium [place] (Rocuronium 50 Mg/5 Ml Vial) Confirm Administered Dose 50 mg .ROUTE .STK-MED ONE Stop: 02/07/21 08:16 Succinylcholine Chloride (Succinylcholine 200 Mg/10 Ml Mdv) Confirm Administered Dose 200 mg .ROUTE .STK-MED ONE Stop: 02/07/21 08:16 - Exam General: Reports: Alert, Oriented, Cooperative, No Acute Distress Extremities: Normal Capillary Refill, Joint Swelling (R knee ), Limited Range of Motion Skin: Reports: Dry, Intact Wound/Incisions: Reports: Healing Well, Dressing Dry and Intact, No Drainage Neurological: Reports: No New Focal Deficit Psy/Mental Status: Reports: Alert, Normal Affect, Normal Mood
--- NOTE | 2021-02-14 22:44 | OR ---
DATE OF PROCEDURE: 02/07/2021 SURGEON: Alejandro Chahal MD PREOPERATIVE DIAGNOSIS: Patellofemoral syndrome, right knee, with anterior knee pain. POSTOPERATIVE DIAGNOSES: Patellofemoral syndrome, right knee, with right knee pain; mild chondromalacia, patellofemoral joint. PROCEDURES: 1. Arthroscopy, right knee, with arthroscopic lateral release. 2. Tibial tubercle transfer, Darci procedure, right knee. STATIONS SUPERINTENDENT: MALA Lorenzana ANESTHESIA: General. INDICATIONS: Rishabh is a 25-year-old female with a history of bilateral anterior knee pain. She underwent previous arthroscopy with debridement of plical shelf and chondroplasty. She is experiencing persistent anterior knee pain with catching and giving way. She has failed conservative treatment with therapy. She demonstrates increased Q angle with a slight valgus knee. She now presents for a tibial tubercle transfer. Risks, benefits, potential complications of the procedure were discussed. DESCRIPTION OF PROCEDURE: After adequate anesthesia was obtained, the patient was placed supine and a tourniquet was placed about the right upper thigh. Right leg was prepped and draped in a sterile fashion. Leg was exsanguinated and tourniquet inflated to 300 mmHg pressure. Standard inferior and medial and lateral portals were established through previous port sites. The scope was introduced and the knee was inspected. This revealed some softening of the articular cartilage in the dome of the patella with no new significant cartilage lesions. The trochlear groove was intact. Patella showed a slight lateral tilt and overhang laterally. Remainder of the knee scope was unremarkable. The scope was switched from the lateral to the medial portal and a hooked radiofrequency wand was utilized to perform a lateral release under direct visualization. This removed the tilt and allowed the patella to track quite well. A longitudinal incision was then made from approximately the midportion of the patellar tendon for a distance of several centimeters below the tibial tubercle. The tibial tubercle was exposed. The fascia on the anterior compartment was divided and the anterior muscle was elevated from the tibial tubercle. A line for the tibial osteotomy was planned with a Bovie electrocautery. A 3.2 drill bit was then placed from medial to lateral, angling this at a fairly significant incline to obtain anteriorization of the tubercle. This was brought out the lateral cortex just anterior to the posterior cortex. Additional drill holes were then made, progressing distally and making the incline slightly shallower, progressing distally in order to come to a small bony bridge at the distal portion of the osteotomy. Drill holes were then connected with an osteotome and the tibial tubercle was then elevated and translated medially. The medial translation was approximately a centimeter and half. The distal bone bridge remained intact. This was held in position with a large frag screw. The anterior cortex was over-drilled and screw head was inset. The 1st screw was placed at a slight angle to maintain the medial displacement. Two additional screws were placed, again over-drilling the anterior cortex and insetting the screws and these were placed in a straight anterior-posterior direction. Excellent purchase was obtained with all screws. Wound was irrigated. Anterior fascia was closed with 0 Vicryl in interrupted fashion. Skin was closed with 2-0 Vicryl and a running 3-0 Monocryl. The port sites were closed with 3-0 Monocryl and Steri-Strips were applied. Wound was infiltrated with 0.5% Marcaine. A sterile dressing was placed with a light compressive dressing and a knee brace locked in extension. The patient tolerated the procedure very well. There were no complications. She was taken from the operating room in stable condition. Alejandro Chahal MD /[id number]
== END 2021-02-08 17:29 | disposition home or self-care (01) ==
LOC: JP.SDS 06:50 → JP.MS 10:19 → JP.SDS 02-08 17:29
PROVIDERS: ATTEND Specialist
DX: M22.2X1 Patellofemoral disorders, right knee (principal); M94.261 Chondromalacia, right knee; Z01.812 Encounter for preprocedural laboratory examination; Z20.822 Contact with and (suspected) exposure to COVID-19; I10 Essential (primary) hypertension; E11.9 Type 2 diabetes mellitus without complications; E66.9 Obesity, unspecified; Z68.41 Body mass index [BMI] 40.0-44.9, adult; Z79.84 Long term (current) use of oral hypoglycemic drugs; Z79.899 Other long term (current) drug therapy; Z98.890 Other specified postprocedural states
CPT/HCPCS: 27418; 29873; 36415; 80053; 84703; 85027; 87635; 97110; 97116; 97161; 97530; 97535; A9270; C1713; J0330; J0690; J1100; J1885; J2405; J2704; J2710; J3010; J3490; J7030; J7120; U0002

== ENCOUNTER 2021-02-14 20:43 | Emergency (ER) | payer MEDICAID ==
--- NOTE | 2021-02-14 21:26 | EDM.PDOC ---
ED HPI GENERAL MEDICAL PROBLEM - General Chief Complaint: Lower Extremity Injury/Pain Stated Complaint: HAD SURG ON THE FRIDAY THE , VERY SORE Time Seen by Provider: 02/14/21 21:14 Source of Information: Reports: Patient, Old Records, RN Notes Reviewed History Limitations: Reports: No Limitations - History of Present Illness INITIAL COMMENTS - FREE TEXT/NARRATIVE: 25-year-old female presents emergency department today for wound check she recently underwent right tubercle ostomy, she is concerned about the level of bruising that she is appreciated in her lower extremities, her pain is under control no fevers no's drainage no redness Right Knee Pain Score (Numeric/FACES): 9 - Related Data Allergies Allergy/AdvReac Type Severity Reaction Status Date / Time No Known Allergies Allergy Verified 02/14/21 20:58 Home Meds: Home Meds Albuterol Sulfate [Albuterol Sulfate Hfa] 1 - 2 puff IN ASDIRECTED PRN 10/26/19 [History] Fluticasone Propionate [Flonase] 2 spray NASBOTH DAILY PRN 06/01/20 [History] hydrOXYzine HCL [Hydroxyzine HCl] 20 mg PO TID PRN 06/01/20 [History] Cyclobenzaprine [Flexeril] 10 mg PO DAILY PRN 12/18/20 [History] Loratadine [Claritin] 10 mg PO DAILY 12/18/20 [History] Omeprazole 20 mg PO DAILY 12/18/20 [History] metFORMIN [Glucophage] 500 mg PO BID 12/18/20 [History] Albuterol/Ipratropium [DuoNeb 3.0-0.5 MG/3 ML] 3 ml INH Q4H PRN 01/25/21 [History] Escitalopram Oxalate [Lexapro] 20 mg PO DAILY 01/25/21 [History] Naproxen 500 mg PO BID 01/25/21 [History] Phentermine HCl 37.5 mg PO DAILY 01/25/21 [History] methocarbamoL [Methocarbamol] 500 mg PO TID PRN 01/25/21 [History] Amphetamine/Dextroamphetamine [Adderall XR] 10 mg PO DAILY 02/07/21 [History] Dicyclomine [Bentyl] 10 mg PO QIDACANDBED 02/07/21 [History] Acetaminophen/HYDROcodone [[place] 325-5 MG] 1 - 2 tab PO Q6H PRN 7 Days #40 tab 02/08/21 [Rx] Past Medical History HEENT History: Reports: Impaired Vision Other HEENT History: wears glasses Respiratory History: Reports: Asthma, COPD Gastrointestinal History: Reports: GERD, Other (See Below) Other Gastrointestinal History: right sided abdominal pain 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 R knee pain Neurological History: Reports: Migraines Psychiatric History: Reports: Anxiety, Depression, Panic Attack, Suicidal Ideation Endocrine/Metabolic History: Reports: Obesity/BMI 30+ Hematologic History: Reports: None Immunologic History: Reports: None Oncologic (Cancer) History: Reports: None Dermatologic History: Reports: None - Infectious Disease History Infectious Disease History: Reports: Chicken Pox - Past Surgical History Head Surgeries/Procedures: Reports: None HEENT Surgical History: Reports: None Respiratory Surgical History: Reports: None GI Surgical History: Reports: Cholecystectomy, EGD Endocrine Surgical History: Reports: None Neurological Surgical History: Reports: None Musculoskeletal Surgical History: Reports: Arthroscopic Knee, Other (See Below) Other Musculoskeletal Surgeries/Procedures:: R knee scope 04/19/20. L knee scope 06/14/20. R knee arthroscopy w/ lateral release and tibial tubercle transfer 02/07/21 Social & Family History - Family History Family Medical History: No Pertinent Family History Cardiac: Reports: Hypertension, NM Respiratory: Reports: Asthma Neurological: Reports: CVA Psychiatric: Reports: PTSD Endocrine/Metabolic: Reports: Diabetes, type II Oncologic: Reports: Brain, Lung - Tobacco Use Tobacco Use Status *Q: Former Tobacco User Years of Tobacco use: 8 Packs/Tins Daily: 1.5 Used Tobacco, but Quit: Yes Month/Year Tobacco Last Used: december - Caffeine Use Caffeine Use: Reports: Soda - Recreational Drug Use Recreational Drug Use: No Review of Systems - Review of Systems Review Of Systems: See Below Skin: Reports: Bruising, Change in Color Neurological: Reports: No Symptoms ED EXAM, GENERAL - Physical Exam Exam: See Below Free Text/Narrative:: Examination of the knee right side is surgical incision is clean dry and intact Steri-Strips are still in place I do not appreciate any erythema there is no warmth there is a moderate amount of bruising which encompasses half of the lower extremity and bruising around the knee as well as both anterior and posterior aspects. However this is not unusual for the level of surgery that was performed Exam Limited By: No Limitations General Appearance: Alert, WD/WN, No Apparent Distress Course - Vital Signs Last Recorded V/S: Last Vital Signs Temp 97.3 F 02/14/21 20:57 Pulse 100 02/14/21 20:57 Resp 16 02/14/21 20:57 BP 148/83 H 02/14/21 20:57 Pulse Ox 98 02/14/21 20:57 Departure - Departure Time of Disposition: 21:25 Disposition: Home, Self-Care 01 Condition: Fair Clinical Impression: Visit for wound check - Discharge Information Referrals: Nicolasa Castillo PA-C [Primary Care Provider] - Additional Instructions: Continue with your postoperative care, keep your follow-up appointment with orthopedics next week call return to the emergency department worsening of symptoms Sepsis Event Note (ED) - Evaluation Sepsis Screening Result: No Definite Risk - Focused Exam Vital Signs: Vital Signs Temp Pulse Resp BP Pulse Ox 02/14/21 20:57 97.3 F 100 16 148/83 H 98 02/14/21 20:55 97.3 F 100 16 148/83 H 98 - Assessment/Plan Plan: Assessment Acuity = acute Site and laterality = wound check Etiology = postoperative Manifestations = none Location of injury = Home Lab values = none Plan She has a follow-up appointment with orthopedics next week This note was dictated using [employer] voice recognition software please call with any questions on syntax or grammar.
== END 2021-02-14 21:50 | disposition home or self-care (01) ==
LOC: JP.ED 20:43
DX: Z47.89 Encounter for other orthopedic aftercare (principal); J44.9 Chronic obstructive pulmonary disease, unspecified; K21.9 Gastro-esophageal reflux disease without esophagitis; E66.9 Obesity, unspecified; Z87.891 Personal history of nicotine dependence; Z68.39 Body mass index [BMI] 39.0-39.9, adult; Z79.899 Other long term (current) drug therapy
CPT/HCPCS: 99282

== ENCOUNTER 2021-05-06 20:06 | Emergency (ER) | payer MEDICAID ==
--- NOTE | 2021-05-06 21:55 | EDM.PDOC ---
ED HPI GENERAL MEDICAL PROBLEM - General Chief Complaint: Lower Extremity Injury/Pain Stated Complaint: KNEE PAIN Time Seen by Provider: 05/06/21 20:35 Source of Information: Reports: Patient History Limitations: Reports: No Limitations - History of Present Illness INITIAL COMMENTS - FREE TEXT/NARRATIVE: Patient with knee pain for approximately 1 week. Patient states she fell on it approximately 6 days ago. She has noticed in the last week it is progressively getting worse. She states today she came to the ER because she was having difficulty bearing weight and and requiring help to change position. Patient walked into the ER without limping or assistance. Patient states she was going to get a hold of her surgeon to see if there is anything else she can do but he is in surgery all day tomorrow so she came in this evening for an evaluation. Patient has tried [id number] medications for pain relief. Upper/outer aspect of knee is tender to touch. There is some old bruising around the knee and kneecap. A small amount of swelling around the kneecap. Patient is slightly guarded with exam. Right Knee Pain Score (Numeric/FACES): 7 - Related Data Allergies Allergy/AdvReac Type Severity Reaction Status Date / Time No Known Allergies Allergy Verified 05/06/21 20:10 Home Meds: Home Meds Albuterol Sulfate [Albuterol Sulfate Hfa] 1 - 2 puff IN ASDIRECTED PRN 10/26/19 [History] Fluticasone Propionate [Flonase] 2 spray NASBOTH DAILY PRN 06/01/20 [History] hydrOXYzine HCL [Hydroxyzine HCl] 20 mg PO TID PRN 06/01/20 [History] Cyclobenzaprine [Flexeril] 10 mg PO DAILY PRN 12/18/20 [History] Loratadine [Claritin] 10 mg PO DAILY 12/18/20 [History] Omeprazole 20 mg PO DAILY 12/18/20 [History] metFORMIN [Glucophage] 500 mg PO BID 12/18/20 [History] Albuterol/Ipratropium [DuoNeb 3.0-0.5 MG/3 ML] 3 ml INH Q4H PRN 01/25/21 [History] Escitalopram Oxalate [Lexapro] 20 mg PO DAILY 01/25/21 [History] Naproxen 500 mg PO BID 01/25/21 [History] Phentermine HCl 37.5 mg PO DAILY 01/25/21 [History] methocarbamoL [Methocarbamol] 500 mg PO TID PRN 01/25/21 [History] Dicyclomine [Bentyl] 10 mg PO QIDACANDBED 02/07/21 [History] Lisdexamfetamine [Vyvanse] 20 mg PO DAILY 03/08/21 [History] Past Medical History HEENT History: Reports: Impaired Vision Other HEENT History: wears glasses Respiratory History: Reports: Asthma, COPD Gastrointestinal History: Reports: GERD, Other (See Below) Other Gastrointestinal History: right sided abdominal pain 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 R knee pain Neurological History: Reports: Migraines Psychiatric History: Reports: Anxiety, Depression, Panic Attack, Suicidal Ideation Endocrine/Metabolic History: Reports: Obesity/BMI 30+ Hematologic History: Reports: None Immunologic History: Reports: None Oncologic (Cancer) History: Reports: None Dermatologic History: Reports: None - Infectious Disease History Infectious Disease History: Reports: Chicken Pox - Past Surgical History Head Surgeries/Procedures: Reports: None HEENT Surgical History: Reports: None Cardiovascular Surgical History: Reports: None Respiratory Surgical History: Reports: None GI Surgical History: Reports: Cholecystectomy, EGD Female Surgical History: Reports: None Endocrine Surgical History: Reports: None Neurological Surgical History: Reports: None Musculoskeletal Surgical History: Reports: Arthroscopic Knee, Other (See Below) Other Musculoskeletal Surgeries/Procedures:: R knee scope 04/19/20. L knee scope 06/14/20. R knee arthroscopy w/ lateral release and tibial tubercle transfer 02/07/21 Dermatological Surgical History: Reports: None Social & Family History - Family History Family Medical History: No Pertinent Family History Cardiac: Reports: Hypertension, [place] Respiratory: Reports: Asthma Neurological: Reports: CVA Psychiatric: Reports: PTSD Endocrine/Metabolic: Reports: Diabetes, type II Oncologic: Reports: Brain, Lung - Tobacco Use Tobacco Use Status *Q: Former Tobacco User Used Tobacco, but Quit: Yes Month/Year Tobacco Last Used: 12/2018 - Caffeine Use Caffeine Use: Reports: Soda - Recreational Drug Use Recreational Drug Use: Yes Drug Use in Last 12 Months: No Recreational Drug Type: Reports: Marijuana/Hashish Recreational Drug Use Frequency: Not Used In Over 6 Months Review of Systems - Review of Systems Review Of Systems: See Below Constitutional: Reports: No Symptoms Respiratory: Reports: No Symptoms Cardiovascular: Reports: No Symptoms Musculoskeletal: Reports: Joint Pain (Right knee), Joint Swelling (Right knee) Skin: Reports: Bruising (Right knee) Neurological: Reports: No Symptoms (CMS intact below the right knee ) ED EXAM, GENERAL - Physical Exam Exam: See Below Exam Limited By: No Limitations General Appearance: Alert, WD/WN, Mild Distress Respiratory/Chest: No Respiratory Distress, Lungs Clear, Normal Breath Sounds Cardiovascular: Normal Peripheral Pulses, Regular Rate, Rhythm Peripheral Pulses: 2+: Popliteal (L), Popliteal (R), Posterior Tibial (L), Posterior Tibial (R), Dorsalis Pedis (L), Dorsalis Pedis (R) Extremities: Leg Pain (Right knee), Limited Range of Motion (Related to recent surgery, recent fall and swelling) Neurological: Alert, Oriented, CN II-XII Intact Psychiatric: Normal Affect, Normal Mood Skin Exam: Warm, Dry, Intact Course - Vital Signs Last Recorded V/S: Last Vital Signs Temp 36.8 C 05/06/21 20:25 Pulse 78 05/06/21 20:25 Resp 16 05/06/21 20:25 BP 112/69 05/06/21 20:25 Pulse Ox 94 L 05/06/21 20:25 - Orders/Labs/Meds Orders: Active Orders 24 hr Category Date Time Status Knee 3V Rt [CR] Stat Exams 05/06/21 20:35 Taken - Radiology Interpretation Free Text/Narrative:: X-ray of knee 3 view shows hardware in place, no signs of new fracture, dislocation or abnormalities. - Re-Assessments/Exams Free Text/Narrative Re-Assessment/Exam: 05/06/21 23:44 Review of x-rays with patient. Patient notified no new fractures, dislocation or abnormality at this time. Patient encouraged to rest, elevate, ice, and utilize ibuprofen/Tylenol as appropriate for pain. Patient in agreement with this plan and was instructed to return to ER/clinic if symptoms worsen or fail to improve prior to being seen by Ortho provider. Departure - Departure Time of Disposition: 21:59 Disposition: Home, Self-Care 01 Condition: Fair Clinical Impression: Knee pain, right - Discharge Information *PRESCRIPTION DRUG MONITORING PROGRAM REVIEWED*: Not Applicable *COPY OF PRESCRIPTION DRUG MONITORING REPORT IN PATIENT IDALMIS: Not Applicable Instructions: Acute Knee Pain, Adult Referrals: Nicolasa Castillo PA-C [Primary Care Provider] - Forms: ED Department Discharge Additional Instructions: utilize ibuprofen/tylenol as previously used after knee surgery. Return to primary provider or ortho provider if symptoms fail to improve or worsen. Sepsis Event Note (ED) - Evaluation Sepsis Screening Result: No Definite Risk - Focused Exam Vital Signs: Vital Signs Temp Pulse Resp BP Pulse Ox 05/06/21 20:25 36.8 C 78 16 112/69 94 L 05/06/21 20:23 36.8 C 78 16 112/69 94 L - My Orders Last 24 Hours: My Active Orders 05/06/21 20:35 Knee 3V Rt [CR] Stat - Assessment/Plan Last 24 Hours: My Active Orders 05/06/21 20:35 Knee 3V Rt [CR] Stat
--- NOTE | 2021-05-07 09:51 | CR ---
Knee 3V Rt CLINICAL HISTORY: Recent surgery, drop something on knee FINDINGS: No acute fracture or dislocation is noted. There are no osseous lesions. Patient has had previous surgery at the anterior tibial tuberosity. Impression: Recent tibial surgery No fracture
== END 2021-05-06 22:03 | disposition home or self-care (01) ==
LOC: JP.ED 20:06
DX: M25.561 Pain in right knee (principal); J44.9 Chronic obstructive pulmonary disease, unspecified; K21.9 Gastro-esophageal reflux disease without esophagitis; E66.9 Obesity, unspecified; Z68.41 Body mass index [BMI] 40.0-44.9, adult; Z87.891 Personal history of nicotine dependence
CPT/HCPCS: 73562-26-RT; 73562-RT; 99283-25

== ENCOUNTER 2021-10-10 22:23 | Emergency (ER) | payer MEDICAID ==
[2021-10-10 23:35] LABS: CORONAVIRUS COVID-19 NAA NEGATIVE (NEGATIVE)
--- NOTE | 2021-10-11 00:04 | EDM.PDOC ---
ED HPI GENERAL MEDICAL PROBLEM - General Chief Complaint: ENT Problem Stated Complaint: COUGH, SORE THROAT, HEADACHE, DIARRHEA Time Seen by Provider: 10/11/21 00:02 Source of Information: Reports: Patient History Limitations: Reports: No Limitations - History of Present Illness INITIAL COMMENTS - FREE TEXT/NARRATIVE: pt has had body aches scratchy throat and cough. There was a possible contact with covid and since she has a history of copd her sig other felt like she should be checked for covid. Onset: Gradual, Other ( pt started not feeling well yesterday. She has not had a fever. ) Duration: Hour(s): Location: Reports: Neck, Chest, Generalized Associated Symptoms: Reports: Cough, Other (pt has had diarrhea) - Related Data Allergies Allergy/AdvReac Type Severity Reaction Status Date / Time No Known Allergies Allergy Verified 10/10/21 22:41 Home Meds: Home Meds Albuterol Sulfate [Albuterol Sulfate Hfa] 1 - 2 puff IN ASDIRECTED PRN 10/26/19 [History] Fluticasone Propionate [Flonase] 2 spray NASBOTH DAILY PRN 06/01/20 [History] hydrOXYzine HCL [Hydroxyzine HCl] 20 mg PO TID PRN 06/01/20 [History] Cyclobenzaprine [Flexeril] 10 mg PO DAILY PRN 12/18/20 [History] Omeprazole 20 mg PO DAILY 12/18/20 [History] metFORMIN [Glucophage] 500 mg PO BID 12/18/20 [History] Albuterol/Ipratropium [DuoNeb 3.0-0.5 MG/3 ML] 3 ml INH Q4H PRN 01/25/21 [History] Escitalopram Oxalate [Lexapro] 20 mg PO DAILY 01/25/21 [History] Phentermine HCl 37.5 mg PO DAILY 01/25/21 [History] methocarbamoL [Methocarbamol] 500 mg PO TID PRN 01/25/21 [History] Dicyclomine [Bentyl] 10 mg PO QIDACANDBED 02/07/21 [History] Lisdexamfetamine [Vyvanse] 20 mg PO DAILY 03/08/21 [History] Naproxen 500 mg PO BID PRN #60 tablet 06/28/21 [Rx] Past Medical History HEENT History: Reports: Impaired Vision Other HEENT History: wears glasses Respiratory History: Reports: Asthma, COPD Gastrointestinal History: Reports: GERD, Other (See Below) Other Gastrointestinal History: right sided abdominal pain 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 R knee pain Neurological History: Reports: Migraines Psychiatric History: Reports: Anxiety, Depression, Panic Attack, Suicidal Eliel ation Endocrine/Metabolic History: Reports: Obesity/BMI 30+ Hematologic History: Reports: None Immunologic History: Reports: None Oncologic (Cancer) History: Reports: None Dermatologic History: Reports: None - Infectious Disease History Infectious Disease History: Reports: Chicken Pox - Past Surgical History Head Surgeries/Procedures: Reports: None HEENT Surgical History: Reports: None Cardiovascular Surgical History: Reports: None Respiratory Surgical History: Reports: None GI Surgical History: Reports: Cholecystectomy, EGD Female Surgical History: Reports: None Endocrine Surgical History: Reports: None Neurological Surgical History: Reports: None Musculoskeletal Surgical History: Reports: Arthroscopic Knee, Other (See Below) Other Musculoskeletal Surgeries/Procedures:: R knee scope 04/19/20. L knee scope 06/14/20. R knee arthroscopy w/ lateral release and tibial tubercle transfer 02/07/21 Dermatological Surgical History: Reports: None Social & Family History - Family History Family Medical History: No Pertinent Family History Cardiac: Reports: Hypertension, [place] Respiratory: Reports: Asthma Neurological: Reports: CVA Psychiatric: Reports: PTSD Endocrine/Metabolic: Reports: Diabetes, type II Oncologic: Reports: Brain, Lung - Tobacco Use Tobacco Use Status *Q: Former Tobacco User Years of Tobacco use: 8 Used Tobacco, but Quit: Yes Month/Year Tobacco Last Used: 2017 - Caffeine Use Caffeine Use: Reports: Energy Drinks, Soda - Recreational Drug Use Recreational Drug Use: No ED ROS ENT - Review of Systems Review Of Systems: See Below Constitutional: Reports: No Symptoms HEENT: Reports: No Symptoms Respiratory: Reports: Cough Cardiovascular: Reports: No Symptoms Endocrine: Reports: No Symptoms GI/Abdominal: Reports: Diarrhea : Reports: No Symptoms Musculoskeletal: Reports: No Symptoms Skin: Reports: No Symptoms Neurological: Reports: No Symptoms ED EXAM, ENT - Physical Exam Exam: See Below Text/Narrative:: pt arrived with body aches and diarrhea. She has not been vomiting. She has not had a fever. Exam Limited By: No Limitations General Appearance: Alert, Anxious Ears: Normal TMs Nose: Normal Inspection Mouth/Throat: Normal Inspection Head: Atraumatic Neck: Normal Inspection Respiratory/Chest: No Respiratory Distress Cardiovascular: Regular Rate, Rhythm GI/Abdominal: Soft, Non-Tender (Female) Exam: Deferred Rectal (Female) Exam: Deferred Back: Normal Inspection Extremities: Normal Inspection Neurological: Alert, Oriented, Normal Cognition Psychiatric: Anxious Course - Vital Signs Last Recorded V/S: Last Vital Signs Temp 36.1 C 10/10/21 22:39 Pulse 80 10/10/21 22:39 Resp 16 10/10/21 22:39 BP 131/61 10/10/21 22:39 Pulse Ox 96 10/10/21 22:39 - Orders/Labs/Meds Orders: Active Orders 24 hr Category Date Time Status Isolation [COMM] Stat Oth 10/10/21 23:04 Ordered Labs: Laboratory Tests 10/10/21 Range/Units 23:09 Influenza Type A RNA Negative (NEGATIVE) RSV RNA ([facility]) Negative (NEGATIVE) Influenza Type B RNA Negative (NEGATIVE) SARS-CoV-2 RNA ([facility]) Negative (NEGATIVE) - Re-Assessments/Exams Free Text/Narrative Re-Assessment/Exam: 10/11/21 00:18 pt arrived with concern regarding having covid. She had a covid test and she was neg for covid. influ and rsv. Departure - Departure Time of Disposition: 00:02 Disposition: Home, Self-Care 01 Condition: Fair Clinical Impression: URI (upper respiratory infection) - Discharge Information Instructions: Upper Respiratory Infection, Adult, Viral Respiratory Infection Referrals: Nicolasa Castillo PA-C [Primary Care Provider] - Forms: ED Department Discharge Care Plan Goals: tylenol and motrin for temp and body aches,push fluids, cool mist huumidfier, rtc if further symptoms. Sepsis Event Note (ED) - Evaluation Sepsis Screening Result: No Definite Risk - Focused Exam Vital Signs: Vital Signs Temp Pulse Resp BP Pulse Ox 10/10/21 22:39 36.1 C 80 16 131/61 96 - My Orders Last 24 Hours: My Active Orders 10/10/21 23:04 Isolation [COMM] Stat - Assessment/Plan Last 24 Hours: My Active Orders 10/10/21 23:04 Isolation [COMM] Stat
== END 2021-10-11 00:09 | disposition home or self-care (01) ==
LOC: JP.ED 22:23
DX: J06.9 Acute upper respiratory infection, unspecified (principal); J44.9 Chronic obstructive pulmonary disease, unspecified; K21.9 Gastro-esophageal reflux disease without esophagitis; E66.9 Obesity, unspecified; Z68.41 Body mass index [BMI] 40.0-44.9, adult; Z87.891 Personal history of nicotine dependence; Z20.822 Contact with and (suspected) exposure to COVID-19
CPT/HCPCS: 0241U; 99283

== ENCOUNTER 2022-02-11 06:25 | Day surgery (SDC) | payer MEDICAID ==
[2022-02-11] MEDS ORDERED: Bupivacaine 0.5% 30 ML SDV ONE (06:37)
[2022-02-11] MEDS ORDERED: Nozin Nasal Sanitizer NASBOTH ONE (07:00)
[2022-02-11] MEDS ORDERED: Lactated Ringers 1,000 ML IV SCH (07:00)
[2022-02-11] MEDS ORDERED: fentaNYL 250 MCG/5 ML SDV ONE ×2 (07:05→08:11)
[2022-02-11] MEDS ORDERED: Propofol 200 MG/20 ML SDV ONE (07:06)
[2022-02-11] MEDS ORDERED: Dexamethasone 4 MG/ML SDV ONE (07:06)
[2022-02-11] MEDS ORDERED: Ondansetron 4 MG/2 ML SDV ONE (07:06)
[2022-02-11] MEDS ORDERED: Succinylcholine 200 MG/10 ML MDV ONE (07:27)
[2022-02-11] MEDS ORDERED: Rocuronium 50 MG/5 ML Vial ONE (07:27)
[2022-02-11] MEDS ORDERED: Glycopyrrolate 0.2 MG/ML 5 ML MDV ONE (07:27)
[2022-02-11] MEDS ORDERED: Albuterol/Ipratropium 3.0-0.5 MG/3 ML Neb Soln NEB ONE (07:27)
[2022-02-11] MEDS ORDERED: Neostigmine Methylsulfate 1 MG/ML 5 ML Syringe ONE (07:27)
[2022-02-11] MEDS ORDERED: ceFAZolin 2 GM in Premix Bag 1 BAG IV ONE (07:30)
[2022-02-11] MEDS ORDERED: traMADol 50 MG Tab PO ONE (09:25)
== END 2022-02-11 10:33 | disposition home or self-care (01) ==
LOC: JP.SDS 06:25
PROVIDERS: ATTEND Specialist
DX: M67.52 Plica syndrome, left knee (principal); M22.42 Chondromalacia patellae, left knee; G47.33 Obstructive sleep apnea (adult) (pediatric); J44.9 Chronic obstructive pulmonary disease, unspecified; E66.01 Morbid (severe) obesity due to excess calories; E11.9 Type 2 diabetes mellitus without complications; Z87.891 Personal history of nicotine dependence; Z68.41 Body mass index [BMI] 40.0-44.9, adult
CPT/HCPCS: 29875; 36415; 80048; 81025; 85027; 94640; A9270-GY; J0330; J0690; J1100; J2405; J2704; J2710; J3010; J3490; J7120; J7620

== ENCOUNTER 2022-06-15 01:00 | Emergency (ER) | payer BC, MEDICAID ==
[2022-06-15] MEDS: Aluminum Hydroxide/Magnesium Hydroxide/Simethicone Susp 30 ML Cup PO SCH (01:43)
[2022-06-15] MEDS: Ibuprofen 400 MG Tab PO ONE (01:43)
[2022-06-15 02:22] LABS: TROPONIN I HIGH SENSITIVITY 4.2 pg/mL (<=60.3)
== END 2022-06-15 03:16 | disposition home or self-care (01) ==
LOC: JP.ED 01:00
DX: R07.89 Other chest pain (principal); R10.13 Epigastric pain; J44.9 Chronic obstructive pulmonary disease, unspecified; E11.9 Type 2 diabetes mellitus without complications; E66.9 Obesity, unspecified; Z68.41 Body mass index [BMI] 40.0-44.9, adult; Z79.84 Long term (current) use of oral hypoglycemic drugs; Z86.16 Personal history of COVID-19
CPT/HCPCS: 36415; 80048; 84484; 85025; 99285; A9270

== ENCOUNTER 2023-04-19 02:06 | Emergency (ER) | payer BC, MEDICAID | END 2023-04-19 02:50 | disposition home or self-care (01) | LOC: JP.ED 02:06 | DX: S90.31XA Contusion of right foot, initial encounter (principal); J44.9 Chronic obstructive pulmonary disease, unspecified; E11.9 Type 2 diabetes mellitus without complications; E66.9 Obesity, unspecified; Z68.42 Body mass index [BMI] 45.0-49.9, adult; Z86.16 Personal history of COVID-19; Z79.899 Other long term (current) drug therapy; W55.12XA Struck by horse, initial encounter | CPT/HCPCS: 73630-26-RT; 73630-RT; 99283 ==

== ENCOUNTER 2024-06-12 02:39 | Emergency (ER) | payer BC | END 2024-06-12 04:06 | disposition home or self-care (01) | LOC: JP.ED 02:39 | DX: M79.10 Myalgia, unspecified site (principal); J44.9 Chronic obstructive pulmonary disease, unspecified; E11.9 Type 2 diabetes mellitus without complications; Z79.899 Other long term (current) drug therapy; Z90.49 Acquired absence of other specified parts of digestive tract | CPT/HCPCS: 99283 ==

== ENCOUNTER 2025-02-23 20:39 | Emergency (ER) | payer BC ==
[2025-02-23] MEDS ORDERED: Aspirin 81 MG Tab.EC PO ONE (21:23)
[2025-02-23 21:33] LABS: BASOPHILS ABSOLUTE AUTO 0.05 K/uL (0.00-0.10); BASOPHILS PERCENT AUTO 0.8 % (0.1-1.3); EOSINOPHILS ABSOLUTE AUTO 0.08 K/uL (0.00-0.40); EOSINOPHILS PERCENT AUTO 1.2 % (0.0-5.4); HEMATOCRIT 39.7 % (34.3-46.0); HEMOGLOBIN 13.1 g/dL (11.2-15.5); IMMATURE GRAN PERCENT AUTO 0.3 % (0.0-0.7); LYMPHOCYTES ABSOLUTE AUTO 2.38 K/uL (0.8-3.3); MEAN CORPUSCULAR HEMOGLOBIN 28.6 pg (31.6-35.5); MEAN CORPUSCULAR VOLUME 86.7 fL (81.4-99.0); MONOCYTES ABSOLUTE AUTO 0.27 K/uL (0.20-0.90); MONOCYTES PERCENT AUTO 4.2 % (3.3-12.6); NEUTROPHILS ABSOLUTE AUTO 3.64 K/uL (1.0-7.6); NEUTROPHILS PERCENT AUTO 56.5 % (40.0-78.1); PLATELET COUNT,PLT 238 K/uL (130-375); RED BLOOD CELL COUNT 4.58 M/uL (3.77-5.24); WHITE BLOOD CELL COUNT,WBC 6.4 K/uL (3.2-11.0)
[2025-02-23 21:35] LABS: IMMATURE GRAN ABSOLUTE AUTO 0.02 K/uL (0.00-0.23)
[2025-02-23 21:57] LABS: A/G RATIO 1.1 (1.2-2.2); ALANINE AMINOTRANSFERASE,ALT 35 U/L (12-78); ALBUMIN 3.8 g/dL (3.4-5.0); ALKALINE PHOSPHATASE 60 U/L (46-116); ASPARTATE AMNIOTRANSFERASE,AST 45 U/L (15-37); BILIRUBIN TOTAL 0.4 mg/dL (0.2-1.0); BLOOD UREA NITROGEN,BUN 13 mg/dL (7-18); CALCIUM 9.6 mg/dL (8.5-10.1); CARBON DIOXIDE,CO2 29 mmol/L (21-32); CHLORIDE,CL 100 mmol/L (100-108); CREATININE 0.9 mg/dL (0.6-1.0); ESTIMATED GFR 88 mL/min (>60); GLUCOSE RANDOM 174 mg/dL (74-106); POTASSIUM,K 3.9 mmol/L (3.6-5.2); PROTEIN TOTAL,TP 7.4 g/dL (6.4-8.2); SODIUM,NA 139 mmol/L (140-148)
[2025-02-23] MEDS: Aspirin 81 MG Tab.Chew PO ONE (21:57)
[2025-02-23 22:00] LABS: ANION GAP 13.9 mmol/L (5.0-14.0); TROPONIN I HIGH SENSITIVITY < 4.0 pg/mL (<=60.3)
== END 2025-02-23 23:35 | disposition home or self-care (01) ==
LOC: JP.ED 20:39
DX: R07.89 Other chest pain (principal); J44.9 Chronic obstructive pulmonary disease, unspecified; E11.9 Type 2 diabetes mellitus without complications; Z79.899 Other long term (current) drug therapy; Z79.84 Long term (current) use of oral hypoglycemic drugs
CPT/HCPCS: 36415; 71046; 71046-26; 80053; 84484; 84703; 85025; 93005; 93010; 99283; 99285; A9270-GY

== ENCOUNTER 2025-02-24 12:58 | Emergency (ER) | payer BC ==
[2025-02-24 13:14] LABS: BASOPHILS ABSOLUTE AUTO 0.05 K/uL (0.00-0.10); BASOPHILS PERCENT AUTO 0.9 % (0.1-1.3); EOSINOPHILS ABSOLUTE AUTO 0.05 K/uL (0.00-0.40); EOSINOPHILS PERCENT AUTO 0.9 % (0.0-5.4); HEMATOCRIT 40.9 % (34.3-46.0); HEMOGLOBIN 13.3 g/dL (11.2-15.5); IMMATURE GRAN ABSOLUTE AUTO 0.03 K/uL (0.00-0.23); IMMATURE GRAN PERCENT AUTO 0.5 % (0.0-0.7); LYMPHOCYTES PERCENT AUTO 31.7 % (11.4-47.7); MEAN CORPUSCULAR HEMOGLOBIN 28.7 pg (31.6-35.5); MEAN CORPUSCULAR HGB CONC 32.5 g/dL (31.6-35.5); MEAN CORPUSCULAR VOLUME 88.1 fL (81.4-99.0); MONOCYTES ABSOLUTE AUTO 0.25 K/uL (0.20-0.90); MONOCYTES PERCENT AUTO 4.4 % (3.3-12.6); NEUTROPHILS PERCENT AUTO 61.6 % (40.0-78.1); PLATELET COUNT,PLT 230 K/uL (130-375); RED BLOOD CELL COUNT 4.64 M/uL (3.77-5.24); WHITE BLOOD CELL COUNT,WBC 5.7 K/uL (3.2-11.0)
[2025-02-24 13:40] LABS: ALANINE AMINOTRANSFERASE,ALT 34 U/L (12-78); ALBUMIN 3.6 g/dL (3.4-5.0); ALKALINE PHOSPHATASE 61 U/L (46-116); ASPARTATE AMNIOTRANSFERASE,AST 44 U/L (15-37); BILIRUBIN TOTAL 0.3 mg/dL (0.2-1.0); BLOOD UREA NITROGEN,BUN 13 mg/dL (7-18); CALCIUM 9.2 mg/dL (8.5-10.1); CARBON DIOXIDE,CO2 26 mmol/L (21-32); CHLORIDE,CL 101 mmol/L (100-108); ESTIMATED GFR 77 mL/min (>60); GLUCOSE RANDOM 266 mg/dL (74-106); POTASSIUM,K 3.9 mmol/L (3.6-5.2); PROTEIN TOTAL,TP 7.3 g/dL (6.4-8.2); SODIUM,NA 139 mmol/L (140-148)
[2025-02-24 13:41] LABS: ANION GAP 15.9 mmol/L (5.0-14.0); TROPONIN I HIGH SENSITIVITY < 4.0 pg/mL (<=60.3)
[2025-02-24] MEDS: Albuterol/Ipratropium 3.0-0.5 MG/3 ML Neb Soln NEB ONE (13:50)
== END 2025-02-24 14:22 | disposition home or self-care (01) ==
LOC: JP.ED 12:58
DX: R07.9 Chest pain, unspecified (principal); J44.9 Chronic obstructive pulmonary disease, unspecified; E11.9 Type 2 diabetes mellitus without complications; Z90.49 Acquired absence of other specified parts of digestive tract; Z79.51 Long term (current) use of inhaled steroids; Z79.899 Other long term (current) drug therapy
CPT/HCPCS: 36415; 80053; 84484; 85025; 85379; 94640; 99283; 99285; J7620; A9270-GY

== ENCOUNTER 2025-04-11 06:22 | Day surgery (SDC) | payer BC ==
[2025-04-11] MEDS: Lactated Ringers 1,000 ML IV SCH (06:47)
[2025-04-11] MEDS: Nozin Nasal Sanitizer NASBOTH ONE (06:48)
[2025-04-11 06:55] LABS: BASOPHILS ABSOLUTE AUTO 0.07 K/uL (0.00-0.10); EOSINOPHILS ABSOLUTE AUTO 0.05 K/uL (0.00-0.40); EOSINOPHILS PERCENT AUTO 0.7 % (0.0-5.4); HEMATOCRIT 41.1 % (34.3-46.0); HEMOGLOBIN 13.6 g/dL (11.2-15.5); IMMATURE GRAN PERCENT AUTO 0.3 % (0.0-0.7); LYMPHOCYTES ABSOLUTE AUTO 2.54 K/uL (0.8-3.3); LYMPHOCYTES PERCENT AUTO 36.4 % (11.4-47.7); MEAN CORPUSCULAR HEMOGLOBIN 28.9 pg (31.6-35.5); MEAN CORPUSCULAR HGB CONC 33.1 g/dL (31.6-35.5); MEAN CORPUSCULAR VOLUME 87.3 fL (81.4-99.0); MONOCYTES ABSOLUTE AUTO 0.36 K/uL (0.20-0.90); MONOCYTES PERCENT AUTO 5.2 % (3.3-12.6); NEUTROPHILS ABSOLUTE AUTO 3.94 K/uL (1.0-7.6); NEUTROPHILS PERCENT AUTO 56.4 % (40.0-78.1); PLATELET COUNT,PLT 245 K/uL (130-375); RED BLOOD CELL COUNT 4.71 M/uL (3.77-5.24)
[2025-04-11 07:08] LABS: IMMATURE GRAN ABSOLUTE AUTO 0.02 K/uL (0.00-0.23)
[2025-04-11] MEDS ORDERED: Propofol 200 MG/20 ML SDV ONE (07:11)
[2025-04-11] MEDS ORDERED: Dexamethasone 4 MG/ML SDV ONE (07:11)
[2025-04-11] MEDS ORDERED: Glycopyrrolate 0.2 MG/ML 5 ML MDV ONE (07:11)
[2025-04-11] MEDS ORDERED: Ondansetron 4 MG/2 ML SDV ONE (07:11)
[2025-04-11] MEDS ORDERED: Rocuronium 50 MG/5 ML Vial ONE (07:11)
[2025-04-11] MEDS ORDERED: Neostigmine Methylsulfate 10 MG/10 ML MDV ONE (07:11)
[2025-04-11] MEDS ORDERED: Succinylcholine 200 MG/10 ML MDV ONE (07:11)
[2025-04-11] MEDS ORDERED: fentaNYL 250 MCG/5 ML SDV ONE (07:12)
[2025-04-11 07:17] LABS: ALANINE AMINOTRANSFERASE,ALT 28 U/L (12-78); ALBUMIN 3.7 g/dL (3.4-5.0); ALKALINE PHOSPHATASE 67 U/L (46-116); ANION GAP 12.4 mmol/L (5.0-14.0); ASPARTATE AMNIOTRANSFERASE,AST 33 U/L (15-37); BILIRUBIN TOTAL 0.6 mg/dL (0.2-1.0); BLOOD UREA NITROGEN,BUN 9 mg/dL (7-18); CALCIUM 9.5 mg/dL (8.5-10.1); CARBON DIOXIDE,CO2 27 mmol/L (21-32); CHLORIDE,CL 101 mmol/L (100-108); CREATININE 0.9 mg/dL (0.6-1.0); ESTIMATED GFR 88 mL/min (>60); GLUCOSE RANDOM 210 mg/dL (74-106); POTASSIUM,K 3.9 mmol/L (3.6-5.2); PROTEIN TOTAL,TP 7.5 g/dL (6.4-8.2); SODIUM,NA 140 mmol/L (140-148)
[2025-04-11] MEDS: ceFAZolin 1 GM in Premix Bag 1 BAG IV ONE (07:50)
[2025-04-11] MEDS: Bupivacaine 0.5% 50 ML MDV ONE (08:16)
[2025-04-11] MEDS ORDERED: Sodium Chloride 0.9% 1,000 ML ONE (08:29)
[2025-04-11] MEDS: Acetaminophen/HYDROcodone 325-5 MG Tab PO PRN (10:32)
== END 2025-04-11 11:17 | disposition home or self-care (01) ==
LOC: JP.SDS 06:22
PROVIDERS: ATTEND Specialist
DX: T84.84XA Pain due to internal orthopedic prosthetic devices, implants and grafts, initial encounter (principal); E11.9 Type 2 diabetes mellitus without complications; F17.200 Nicotine dependence, unspecified, uncomplicated
CPT/HCPCS: 20680; 36415; 76000; 80053; 84703; 85025; A9270; J0330; J0665; J0689; J1100; J1596; J2405; J2704; J2710; J3010; J7030; J7120; 01392-QZ; J3490

== ENCOUNTER 2025-05-07 21:13 | Emergency (ER) | payer MEDICAID ==
[2025-05-07] MEDS: Lidocaine 1% with EPINEPHrine 1:100,000 20 ML MDV INJECT ONE (21:54)
[2025-05-07] MEDS: Diphtheria,Pertussis(Acell),Tetanus Vaccine 0.5 ML Syringe IM ONE (23:20)
[2025-05-07] MEDS: Bacitracin Oint 1 GM U/D Packet TOP ONE (23:22)
== END 2025-05-07 23:35 | disposition home or self-care (01) ==
LOC: JP.ED 21:13
DX: S81.012A Laceration without foreign body, left knee, initial encounter (principal); J44.89 Other specified chronic obstructive pulmonary disease; E11.9 Type 2 diabetes mellitus without complications; Z79.51 Long term (current) use of inhaled steroids; Z79.899 Other long term (current) drug therapy; Z79.84 Long term (current) use of oral hypoglycemic drugs; Z86.16 Personal history of COVID-19; Z23 Encounter for immunization; Z87.891 Personal history of nicotine dependence; W01.198A Fall on same level from slipping, tripping and stumbling with subsequent striking against other object, initial encounter; Y93.89 Activity, other specified
CPT/HCPCS: 12001; 73562; 90471; 90715; 99283; J2004

== ENCOUNTER 2025-05-16 05:30 | Day surgery (SDC) | payer MEDICAID ==
[2025-05-16 06:36] LABS: HEMATOCRIT 38.9 % (34.3-46.0); HEMOGLOBIN 12.9 g/dL (11.2-15.5); MEAN CORPUSCULAR HEMOGLOBIN 29.5 pg (31.6-35.5); MEAN CORPUSCULAR HGB CONC 33.2 g/dL (31.6-35.5); RED BLOOD CELL COUNT 4.37 M/uL (3.77-5.24); WHITE BLOOD CELL COUNT,WBC 7.4 K/uL (3.2-11.0)
[2025-05-16] MEDS: Lactated Ringers 1,000 ML IV SCH (06:39)
[2025-05-16] MEDS: Nozin Nasal Sanitizer NASBOTH ONE (06:41)
[2025-05-16 06:57] LABS: A/G RATIO 0.8 (1.2-2.2); ALANINE AMINOTRANSFERASE,ALT 25 U/L (12-78); ALBUMIN 3.3 g/dL (3.4-5.0); ALKALINE PHOSPHATASE 74 U/L (46-116); ASPARTATE AMNIOTRANSFERASE,AST 28 U/L (15-37); BILIRUBIN TOTAL 0.2 mg/dL (0.2-1.0); BLOOD UREA NITROGEN,BUN 12 mg/dL (7-18); CALCIUM 9.4 mg/dL (8.5-10.1); CARBON DIOXIDE,CO2 29 mmol/L (21-32); CHLORIDE,CL 102 mmol/L (100-108); CREATININE 0.8 mg/dL (0.6-1.0); EST CRCL DRUG DOSING (CG) 91.68 mL/min; ESTIMATED GFR 101 mL/min (>60); GLUCOSE RANDOM 226 mg/dL (74-106); POTASSIUM,K 3.6 mmol/L (3.6-5.2); PROTEIN TOTAL,TP 7.3 g/dL (6.4-8.2); SODIUM,NA 138 mmol/L (140-148)
[2025-05-16 06:58] LABS: ANION GAP 10.6 mmol/L (5.0-14.0)
[2025-05-16] MEDS ORDERED: fentaNYL 250 MCG/5 ML SDV ONE (07:26)
[2025-05-16] MEDS ORDERED: Succinylcholine 200 MG/10 ML MDV ONE (07:27)
[2025-05-16] MEDS ORDERED: Dexamethasone 4 MG/ML SDV ONE (07:27)
[2025-05-16] MEDS ORDERED: Ondansetron 4 MG/2 ML SDV ONE (07:27)
[2025-05-16] MEDS ORDERED: Glycopyrrolate 0.2 MG/ML 5 ML MDV ONE (07:27)
[2025-05-16] MEDS ORDERED: Neostigmine Methylsulfate 10 MG/10 ML MDV ONE (07:27)
[2025-05-16] MEDS ORDERED: Propofol 200 MG/20 ML SDV ONE (07:27)
[2025-05-16] MEDS ORDERED: Rocuronium 50 MG/5 ML Vial ONE (07:27)
[2025-05-16] MEDS: ceFAZolin 2 GM in Premix Bag 1 BAG IV ONE (07:50)
[2025-05-16] MEDS: Albuterol/Ipratropium 3.0-0.5 MG/3 ML Neb Soln NEB ONE (08:04)
[2025-05-16] MEDS: Bupivacaine 0.5% 30 ML SDV ONE (09:50)
== END 2025-05-16 10:45 | disposition home or self-care (01) ==
LOC: JP.SDS 05:30
PROVIDERS: ATTEND Specialist
DX: M94.261 Chondromalacia, right knee (principal); M23.41 Loose body in knee, right knee; E11.9 Type 2 diabetes mellitus without complications; Z98.890 Other specified postprocedural states
CPT/HCPCS: 01400; 29877; 36415; 80053; 81025; 85027; 94640; A9270; J0330; J0665; J0690; J1100; J1596; J2405; J2704; J2710; J3010; J7120; J7620; J3490